=== PATIENT | female | born 1950 | race Two or more races ===

== ENCOUNTER 2017-08-16 21:56 | Inpatient (IN) | payer MEDICARE, OTHER ==
[2017-08-16] MEDS ORDERED: Acetaminophen 325 MG Tab PO PRN (22:37)
--- NOTE | 2017-08-16 22:38 | EDM.PDOC ---
ED HPI GENERAL MEDICAL PROBLEM - General Chief Complaint: Gastrointestinal Problem Stated Complaint: VOMITING/FLANK PAIN Time Seen by Provider: 08/16/17 23:00 Source of Information: Reports: Patient History Limitations: Reports: No Limitations - History of Present Illness INITIAL COMMENTS - FREE TEXT/NARRATIVE: The patient is a 66-year-old female with a chief complaint of flank pain and fever. She states that she's been ill for about 4 days. She's been having multiple episodes of vomiting per day. She's had fever and chills for the last couple of days. She also has bilateral flank pain. Pain is moderate, dull, worse with movement. She hasn't particularly had dysuria or hematuria. States like it feels like prior kidney infections. No cough or shortness of breath. She also has had some intermittent abdominal pain, she doesn't have any abdominal pain at the moment. She has a history of heart failure and polymyositis rheumatica and is chronically on steroids, she states she has been able to take her medications and keep them down. She is visiting from out of [facility] and is supposed to travel back to [place] in a few days. Bilateral Upper Flank Pain Score (Numeric/FACES): 8 - Related Data Allergies Allergy/AdvReac Type Severity Reaction Status Date / Time sulfamethoxazole Allergy Hives Verified 08/16/17 22:05 [From Bactrim] trimethoprim [From Bactrim] Allergy Hives Verified 08/16/17 22:05 Home Meds: Home Meds Carvedilol [Coreg] 12.5 mg PO BID 08/16/17 [History] Clopidogrel [Plavix] 75 mg PO DAILY 08/16/17 [History] Cyclobenzaprine [Flexeril] 1 tab PO TID 08/16/17 [History] Evolocumab [Repatha Sureclick] 140 mg WEEKLY 08/16/17 [History] Folic Acid 1 tab PO DAILY 08/16/17 [History] Furosemide [Lasix] 1 tab PO BID 08/16/17 [History] Levothyroxine Sodium [Synthroid] 125 mcg PO DAILY 08/16/17 [History] Lipase/Protease/Amylase [Lluvia Rodriguez 36,000 Units Capsule] 1 cap PO BID 08/16/17 [ History] Mometasone/Formoterol [Dulera 200-5 MCG] 2 puff INH BID 08/16/17 [History] Mycophenolate Mofetil [Cellcept] 1 tab PO BID 08/16/17 [History] Nitroglycerin [Nitrostat] 1 tab SL ASDIRECTED PRN 08/16/17 [History] Pantoprazole Sodium [Protonix] 1 cap PO DAILY 08/16/17 [History] Potassium Chloride [Klor-Con] 20 meq PO BID 08/16/17 [History] Spironolactone [Aldactone] 50 mg PO DAILY 08/16/17 [History] Temazepam 1 cap PO BEDTIME PRN 08/16/17 [History] Venlafaxine HCl [Venlafaxine ER] 1 cap PO DAILY 08/16/17 [History] oxyCODONE HCl [Oxycodone HCl] 5 ml PO Q6HR PRN 08/16/17 [History] predniSONE [Prednisone] 15 mg PO DAILY 08/16/17 [History] Past Medical History Cardiovascular History: Reports: Heart Failure, Hypertension, [place], Stents Respiratory History: Reports: COPD, Sleep Apnea Gastrointestinal History: Reports: Colon Polyp, Hiatal Hernia, Pancreatitis Genitourinary History: Reports: Pyelonephritis CORE FILER History: Reports: Musculoskeletal History: Reports: Fibromyalgia, Osteoarthritis Neurological History: Reports: TIA Endocrine/Metabolic History: Reports: Hypothyroidism Hematologic History: Reports: Anemia - Past Surgical History Cardiovascular Surgical History: Reports: Coronary Artery Stent GI Surgical History: Reports: Cholecystectomy, Colonoscopy, EGD, Polypectomy Female Surgical History: Reports: Hysterectomy Social & Family History - Tobacco Use Smoking Status *Q: Former Smoker Used Tobacco, but Quit: Yes Month/Year Tobacco Last Used: 2008 - Recreational Drug Use Recreational Drug Use: No ED ROS GENERAL - Review of Systems Review Of Systems: See Below Constitutional: Reports: Fever HEENT: Reports: No Symptoms Respiratory: Denies: Shortness of Breath, Cough Cardiovascular: Denies: Chest Pain Endocrine: Reports: No Symptoms GI/Abdominal: Reports: Abdominal Pain, Vomiting : Reports: Dysuria, Flank Pain Musculoskeletal: Reports: No Symptoms Skin: Reports: No Symptoms ED EXAM, RENAL/ - Physical Exam Exam: See Below Exam Limited By: No Limitations General Appearance: Alert, WD/WN, No Apparent Distress Eye Exam: Bilateral Eye: Normal Inspection Ears: Normal External Exam Nose: Normal Inspection Throat/Mouth: Normal Inspection, Normal Oropharynx, Normal Voice, No Airway Compromise Head: Atraumatic, Normocephalic Neck: Normal Inspection, Supple, Non-Tender, Full Range of Motion Respiratory/Chest: No Respiratory Distress, Lungs Clear, Normal Breath Sounds, No Accessory Muscle Use, Chest Non-Tender Cardiovascular: Normal Peripheral Pulses, Regular Rate, Rhythm, No Edema GI/Abdominal: Soft, Non-Tender, No Distention. No: Rebound Back Exam: Normal Inspection, CVA Tenderness (L), CVA Tenderness (R) Extremities: Normal Inspection Neurological: Alert, Oriented, Normal Cognition, No Motor/Sensory Deficits Psychiatric: Normal Affect, Normal Mood Skin Exam: Warm, Dry, Intact, Normal Color, No Rash Course - Vital Signs Last Recorded V/S: Last Vital Signs Temp 37.3 C 08/16/17 22:44 Pulse 92 08/16/17 22:05 Resp 20 08/16/17 22:05 BP 141/44 H 08/16/17 22:05 Pulse Ox 97 08/16/17 22:05 - Orders/Labs/Meds Orders: Active Orders 24 hr Category Date Time Status CULTURE BLOOD [BC] Stat Lab 08/16/17 23:00 Received CULTURE BLOOD [BC] Stat Lab 08/16/17 23:10 Received UA W/MICROSCOPIC [URIN] Stat Lab 08/16/17 22:45 Ordered Acetaminophen [Tylenol] Med 08/16/17 22:37 Active 650 mg PO Q6H PRN Morphine Med 08/16/17 23:37 Active 4 mg IVPUSH Q2H PRN Sodium Chloride 0.9% [Saline Flush] Med 08/16/17 22:37 Active 10 ml FLUSH ASDIRECTED PRN Blood Culture x2 Reflex Set [OM.PC] Stat Oth 08/16/17 22:37 Ordered Peripheral IV Insertion Adult [OM.PC] Routine Oth 08/16/17 22:37 Ordered Medication Orders Acetaminophen (Tylenol) 650 mg PO Q6H PRN PRN Reason: Fever Last Admin: 08/16/17 22:44 Dose: 650 mg Morphine Sulfate (Morphine) 4 mg IVPUSH Q2H PRN PRN Reason: Pain Last Admin: 08/16/17 23:53 Dose: 4 mg Sodium Chloride (Saline Flush) 10 ml FLUSH ASDIRECTED PRN PRN Reason: Keep Vein Open Last Admin: 06/17/18 23:00 Dose: 10 ml Labs: Laboratory Tests 08/16/17 08/16/17 08/16/17 Range/Units 22:45 23:00 23:00 WBC 17.62 H (3.98-10.04) K/mm3 RBC 3.97 L (3.98-5.22) M/mm3 Hgb 11.2 (11.2-15.7) gm/L Hct 35.1 (34.1-44.9) % MCV 88.4 (79.4-94.8) fl MCH 28.2 (25.6-32.2) pg MCHC 31.9 L (32.2-35.5) g/dl RDW Std Deviation 44.9 (36.4-46.3) fL Plt Count 242 (182-369) K/mm3 MPV 9.8 (9.4-12.3) fl Neut % (Auto) 78.4 H (34.0-71.1) % Lymph % (Auto) 11.1 L (19.3-51.7) % Mitchell % (Auto) 8.7 (4.7-12.5) % Eos % (Auto) 1.2 (0.7-5.8) Baso % (Auto) 0.2 (0.1-1.2) % Neut # (Auto) 13.80 H (1.56-6.13) K/mm3 Lymph # (Auto) 1.95 (1.18-3.74) K/mm3 Mitchell # (Auto) 1.54 H (0.24-0.36) K/mm3 Eos # (Auto) 0.22 (0.04-0.36) K/mm3 Baso # (Auto) 0.04 (0.01-0.08) K/mm3 Manual Slide Review Abnormal smear Sodium 133 L (136-145) mEq/L Potassium 4.3 (3.5-5.1) mEq/L Chloride 99 (98-107) mEq/L Carbon Dioxide 22 (21-32) mEq/L Anion Gap 16.3 H (5-15) BUN 24 H (7-18) mg/dL Creatinine 1.1 H (0.55-1.02) mg/dL Est Cr Clr Drug Dosing 40.86 mL/min Estimated GFR (MDRD) 50 (>60) mL/min BUN/Creatinine Ratio 21.8 H (14-18) Glucose 93 (80-115) mg/dL Lactic Acid (0.4-2.0) mmol/L Calcium 8.5 (8.5-10.1) mg/dL Magnesium 2.1 (1.8-2.4) mg/dl Total Bilirubin 0.5 (0.2-1.0) mg/dL AST 59 H (15-37) U/L ALT 113 H (14-59) U/L Alkaline Phosphatase 89 (46-116) U/L Total Protein 6.8 (6.4-8.2) g/dl Albumin 3.3 L (3.4-5.0) g/dl Globulin 3.5 gm/dL Albumin/Globulin Ratio 0.9 L (1-2) Lipase (73-393) U/L Urine Color Yellow (Yellow) Urine Appearance Slt cloudy H (Clear) Urine pH 6.0 (5.0-8.0) Ur Specific [place] 1.015 (1.005-1.030) Urine Protein 2+ H (Negative) Urine Glucose (UA) Negative (Negative) Urine Ketones Negative (Negative) Urine Occult Blood 2+ H (Negative) Urine Nitrite Positive H (Negative) Urine Bilirubin Negative (Negative) Urine Urobilinogen 0.2 (0.2-1.0) Ur Leukocyte Esterase 2+ H (Negative) Urine RBC 10-20 H (0-5) /hpf Urine WBC 40-50 H (0-5) /hpf Ur Epithelial Cells 10-20 H (0-5) /hpf Urine Bacteria Many H (FEW) /hpf Urine Mucus Not seen (FEW) /hpf 08/16/17 08/16/17 Range/Units 23:00 23:00 WBC (3.98-10.04) K/mm3 RBC (3.98-5.22) M/mm3 Hgb (11.2-15.7) gm/L Hct (34.1-44.9) % MCV (79.4-94.8) fl MCH (25.6-32.2) pg MCHC (32.2-35.5) g/dl RDW Std Deviation (36.4-46.3) fL Plt Count (182-369) K/mm3 MPV (9.4-12.3) fl Neut % (Auto) (34.0-71.1) % Lymph % (Auto) (19.3-51.7) % Mitchell % (Auto) (4.7-12.5) % Eos % (Auto) (0.7-5.8) Baso % (Auto) (0.1-1.2) % Neut # (Auto) (1.56-6.13) K/mm3 Lymph # (Auto) (1.18-3.74) K/mm3 Mitchell # (Auto) (0.24-0.36) K/mm3 Eos # (Auto) (0.04-0.36) K/mm3 Baso # (Auto) (0.01-0.08) K/mm3 Manual Slide Review Sodium (136-145) mEq/L Potassium (3.5-5.1) mEq/L Chloride (98-107) mEq/L Carbon Dioxide (21-32) mEq/L Anion Gap (5-15) BUN (7-18) mg/dL Creatinine (0.55-1.02) mg/dL Est Cr Clr Drug Dosing mL/min Estimated GFR (MDRD) (>60) mL/min BUN/Creatinine Ratio (14-18) Glucose (80-115) mg/dL Lactic Acid 2.4 H (0.4-2.0) mmol/L Calcium (8.5-10.1) mg/dL Magnesium (1.8-2.4) mg/dl Total Bilirubin (0.2-1.0) mg/dL AST (15-37) U/L ALT (14-59) U/L Alkaline Phosphatase (46-116) U/L Total Protein (6.4-8.2) g/dl Albumin (3.4-5.0) g/dl Globulin gm/dL Albumin/Globulin Ratio (1-2) Lipase 126 (73-393) U/L Urine Color (Yellow) Urine Appearance (Clear) Urine pH (5.0-8.0) Ur Specific [place] (1.005-1.030) Urine Protein (Negative) Urine Glucose (UA) (Negative) Urine Ketones (Negative) Urine Occult Blood (Negative) Urine Nitrite (Negative) Urine Bilirubin (Negative) Urine Urobilinogen (0.2-1.0) Ur Leukocyte Esterase (Negative) Urine RBC (0-5) /hpf Urine WBC (0-5) /hpf Ur Epithelial Cells (0-5) /hpf Urine Bacteria (FEW) /hpf Urine Mucus (FEW) /hpf Meds: Medications Generic Name Dose Route Start Last Admin Trade Name Freq PRN Reason Stop Dose Admin Acetaminophen 650 mg 08/16/17 22:37 08/16/17 22:44 Tylenol PO 650 mg Q6H PRN Administration Fever Morphine Sulfate 4 mg 08/16/17 23:37 08/16/17 23:53 Morphine IVPUSH 4 mg Q2H PRN Administration Pain Sodium Chloride 10 ml 08/16/17 22:37 08/16/17 23:00 Saline Flush FLUSH 10 ml ASDIRECTED PRN Administration Keep Vein Open Discontinued Medications Generic Name Dose Route Start Last Admin Trade Name Freq PRN Reason Stop Dose Admin Ceftriaxone Sodium 2 gm/ 100 mls @ 200 mls/hr 08/16/17 23:29 08/16/17 23:38 Sodium Chloride IV 08/16/17 23:58 Not Given ONETIME ONE Ceftriaxone Sodium 2 gm/ 100 mls @ 100 mls/hr 08/16/17 23:33 08/16/17 23:47 Sodium Chloride IV 08/17/17 00:32 100 mls/hr ONETIME ONE Administration Sodium Chloride 500 mls @ 1,000 mls/hr 08/16/17 23:34 08/16/17 23:46 Normal Saline IV 08/17/17 00:03 1,000 mls/hr ONETIME ONE Administration Ondansetron HCl 4 mg 08/16/17 23:34 08/16/17 23:47 Zofran IVPUSH 08/16/17 23:35 4 mg ONETIME ONE Administration - Re-Assessments/Exams Free Text/Narrative Re-Assessment/Exam: 08/17/17 01:15 Urine shows infection. Ceftriaxone ordered. White blood cell count is 17,000, 78 % neutrophils, lactate is 2.4. Her creatinines 1.1. She is mildly hyponatremic, her electrolytes are otherwise unremarkable. Lipase is normal. 500 mL bolus ordered as she clinically looks dry and has had a lot of vomiting today. Fluid resuscitation will need to be careful since she does have a history of CHF. Discussed with Dr. Muro who agrees to admit her for further care. Departure - Departure Time of Disposition: 01:16 Disposition: Admitted As Inpatient 68 Clinical Impression: Pyelonephritis Sepsis Qualifiers: Sepsis type: sepsis due to unspecified organism Qualified Code(s): A41.9 - Sepsis, unspecified organism - Discharge Information - My Orders Last 24 Hours: My Active Orders 08/16/17 22:37 Acetaminophen [Tylenol] 650 mg PO Q6H PRN Sodium Chloride 0.9% [Saline Flush] 10 ml FLUSH ASDIRECTED PRN Blood Culture x2 Reflex Set [OM.PC] Stat Peripheral IV Insertion Adult [OM.PC] Routine 08/16/17 22:45 UA W/MICROSCOPIC [URIN] Stat 08/16/17 23:00 CULTURE BLOOD [BC] Stat 08/16/17 23:10 CULTURE BLOOD [BC] Stat 08/16/17 23:37 Morphine 4 mg IVPUSH Q2H PRN - Assessment/Plan Last 24 Hours: My Active Orders 08/16/17 22:37 Acetaminophen [Tylenol] 650 mg PO Q6H PRN Sodium Chloride 0.9% [Saline Flush] 10 ml FLUSH ASDIRECTED PRN Blood Culture x2 Reflex Set [OM.PC] Stat Peripheral IV Insertion Adult [OM.PC] Routine 08/16/17 22:45 UA W/MICROSCOPIC [URIN] Stat 08/16/17 23:00 CULTURE BLOOD [BC] Stat 08/16/17 23:10 CULTURE BLOOD [BC] Stat 08/16/17 23:37 Morphine 4 mg IVPUSH Q2H PRN
[2017-08-16] MEDS: Sodium Chloride 0.9% 10 ML Syringe FLUSH PRN (23:00)
[2017-08-16] MEDS ORDERED: cefTRIAXone 2 GM in Sodium Chloride 0.9% 100 ML IV ONE ×2 (23:29→23:33)
[2017-08-16] MEDS ORDERED: Sodium Chloride 0.9% 500 ML IV ONE (23:34)
[2017-08-16] MEDS ORDERED: Ondansetron 4 MG/2 ML SDV IVPUSH ONE (23:34)
[2017-08-16] MEDS ORDERED: Morphine 4 MG/ML Syringe IVPUSH PRN (23:37)
[2017-08-17] MEDS ORDERED: Sodium Chloride 0.9% 1,000 ML IV SCH ×2 (02:00→18:00)
[2017-08-17] MEDS ORDERED: Acetaminophen/HYDROcodone 325-5 MG Tab PO PRN (02:06)
[2017-08-17] MEDS ORDERED: Morphine 2 MG/ML Syringe IVPUSH PRN (02:08)
[2017-08-17] MEDS ORDERED: Ibuprofen 600 MG Tab PO PRN (02:30)
[2017-08-17] MEDS: Acetaminophen 325 MG Tab PO PRN ×2 (02:32→13:49)
[2017-08-17] MEDS: Ondansetron 4 MG/2 ML SDV IVPUSH PRN ×2 (02:32→09:45)
[2017-08-17] MEDS ORDERED: Cyclobenzaprine 10 MG Tab PO PRN (08:58)
[2017-08-17] MEDS ORDERED: Nitroglycerin 0.4 MG Tab.SL SL PRN (08:58)
[2017-08-17] MEDS ORDERED: oxyCODONE 5 MG Tab PO PRN (08:58)
[2017-08-17] MEDS ORDERED: Carvedilol 12.5 MG Tab PO SCH ×2 (09:00→21:00)
[2017-08-17] MEDS ORDERED: Promethazine 25 MG Tab PO PRN (09:05)
[2017-08-17] MEDS ORDERED: Bisacodyl 5 MG Tab PO PRN (09:05)
[2017-08-17] MEDS ORDERED: Polyethylene Glycol 3350 Powder 17 GM Packet PO PRN (09:05)
[2017-08-17] MEDS ORDERED: Albuterol/Ipratropium 3.0-0.5 MG/3 ML Neb Soln NEB PRN (09:05)
[2017-08-17] MEDS ORDERED: Docusate Sodium 100 MG Cap PO PRN (09:05)
[2017-08-17] MEDS ORDERED: Magnesium Hydroxide 400 MG/5 ML Susp 30 ML Cup PO PRN (09:05)
[2017-08-17] MEDS: Levothyroxine 125 MCG Tab PO SCH (09:37)
[2017-08-17] MEDS: Furosemide 40 MG Tab PO SCH (09:37)
[2017-08-17] MEDS: Venlafaxine 75 MG Cap.ER PO SCH (09:37)
[2017-08-17] MEDS: Pantoprazole 40 MG Tab.CR PO SCH (09:38)
[2017-08-17] MEDS: Clopidogrel 75 MG Tab PO SCH (09:38)
[2017-08-17] MEDS: predniSONE 10 MG Tab PO SCH (09:38)
[2017-08-17] MEDS: Spironolactone 25 MG Tab PO SCH (09:38)
[2017-08-17] MEDS: Folic Acid 1 MG Tab PO SCH (09:38)
[2017-08-17] MEDS: Potassium Chloride 20 MEQ Tab.ER PO SCH ×2 (09:38→20:28)
[2017-08-17] MEDS: LIPASE PO SCH ×2 (09:40→20:31)
[2017-08-17] MEDS: AMYLASE PO SCH ×2 (09:40→20:31)
[2017-08-17] MEDS: PROTEASE PO SCH ×2 (09:40→20:31)
[2017-08-17] MEDS: Formoterol/Mometasone 200-5 MCG 8.8 GM Inhaler IH SCH ×2 (09:57→20:26)
[2017-08-17] MEDS: Mycophenolate Mofetil 250 MG Cap PO SCH ×2 (10:01→20:28)
[2017-08-17] MEDS: Hydrocortisone Sodium Succinate 100 MG/2 ML SDV IVPUSH SCH ×2 (11:50→18:18)
[2017-08-17] MEDS ORDERED: Promethazine 25 MG in Sodium Chloride 0.9% 50 ML IV ONE (12:00)
--- NOTE | 2017-08-17 14:41 | PCM.HP ---
H&P History of Present Illness - General Date of Service: 08/17/17 Admit Problem/Dx: Admission Diagnosis/Problem Admission Diagnosis/Problem Pyelonephritis Source of Information: Patient, Family, Provider History Limitations: Reports: No Limitations - History of Present Illness Initial Comments - Free Text/Narative: This is a 66 y/o female with PMHx significant for previous pyelonephritis, heart failure, HTN, RI, cardiac stents, COPD, ABY, fibromyalgia, OA, hypothyroidism, TIA, hiatal hernia, pancreatitis, colon polyp with polypectomy, and cholecystectomy who comes in for flank pain and fever. Patient reports fever , abdominal pain, vomiting, dysuria and flank pain. She denies HEENT issues, shortness of breath, cough, chest pain, musculoskeletal, or skin issues. Her work-up in the ED showed CBC remarkable for WBC 17.62, 78.4% neutrophils. CMP remarkable for Na 133, anion gap 16.3, BUN 24, Cr 1.1, eGFR 50, AST 59, ALT 113, albumin 3.3. UA showed slightly cloudy appearance, 2+ protein, 2+ occult blood, positive nitrite, 2+ LE, 10-20 RBC, 40-50 WBC, 10-20 epithelial cells, and many bacteria. Lipase was 126. Lactic acid was 2.4. ED also ordered BC x 2 and preliminary report is gram negative rods. Ceftriaxone 2gm IV initiated in ED. Patient reports that she began feeling ill approximately 4 days ago. She has been having fever, chills, and b/l flank pain. She has also been feeling very nauseous and has been vomiting several times per day. She does not endorse significant dysuria, hematuria, or frequency. She has had previous kidney infections and states that she is feeling like she did during the prior kidney infections. She states she was hospitalized in September 2016 for 8 days for a kidney infection. Chronically, patient endorses history of heart failure and she is chronically on steroids. She is visiting from out of state and is supposed to travel back to [place] in a few days. She is subsequently admitted to Med/Surg. She is a former smoker and quit in 2008. She is a full code. PCP is Dr. Jamie Rosario in [place], [place]. Bilateral Upper Flank Pain Score (Numeric/FACES): 0 - Related Data Allergies/Adverse Reactions: Allergies Allergy/AdvReac Type Severity Reaction Status Date / Time sulfamethoxazole Allergy Hives Verified 08/17/17 01:38 [From Bactrim] trimethoprim [From Bactrim] Allergy Hives Verified 08/17/17 01:38 Home Medications: Home Meds Carvedilol [Coreg] 12.5 mg PO BID 08/16/17 [History] Clopidogrel [Plavix] 75 mg PO DAILY 08/16/17 [History] Cyclobenzaprine [Flexeril] 10 mg PO TID PRN 08/16/17 [History] Evolocumab [Repatha Sureclick] 140 mg Q15D 08/16/17 [History] Folic Acid 1 tab PO DAILY 08/16/17 [History] Furosemide [Lasix] 80 mg PO BID 08/16/17 [History] Levothyroxine Sodium [Synthroid] 125 mcg PO DAILY 08/16/17 [History] Lipase/Protease/Amylase [Lluvia Rodriguez 36,000 Units Capsule] 1 cap PO BID 08/16/17 [ History] Mometasone/Formoterol [Dulera 200-5 MCG] 2 puff INH BID 08/16/17 [History] Mycophenolate Mofetil [Cellcept] 1,000 mg PO BID 08/16/17 [History] Nitroglycerin [Nitrostat] 1 tab SL ASDIRECTED PRN 08/16/17 [History] Pantoprazole Sodium [Protonix] 40 mg PO DAILY 08/16/17 [History] Potassium Chloride [Klor-Con] 20 meq PO BID 08/16/17 [History] Spironolactone [Aldactone] 50 mg PO DAILY 08/16/17 [History] Temazepam 15 mg PO BEDTIME PRN 08/16/17 [History] Venlafaxine HCl [Venlafaxine ER] 75 mg PO DAILY 08/16/17 [History] oxyCODONE HCl [Oxycodone HCl] 5 ml PO Q6HR PRN 08/16/17 [History] predniSONE [Prednisone] 15 mg PO DAILY 08/16/17 [History] Past Medical History HEENT History: Reports: Impaired Vision, Other (See Below) Other HEENT History: states she wears glasses for reading only. Cardiovascular History: Reports: Heart Failure, Hypertension, RI, Stents Respiratory History: Reports: COPD, Sleep Apnea Other Respiratory History: says she wears 3 liters oxygen into her cpap machine at night Gastrointestinal History: Reports: Colon Polyp, Hiatal Hernia, Pancreatitis Genitourinary History: Reports: Pyelonephritis [employer] History: Reports: Musculoskeletal History: Reports: Fibromyalgia, Osteoarthritis Neurological History: Reports: TIA Endocrine/Metabolic History: Reports: Hypothyroidism Hematologic History: Reports: Anemia - Past Surgical History Cardiovascular Surgical History: Reports: Coronary Artery Stent GI Surgical History: Reports: Cholecystectomy, Colonoscopy, EGD, Polypectomy Female Surgical History: Reports: Hysterectomy Social & Family History - Family History Family Medical History: Noncontributory - Tobacco Use Smoking Status *Q: Former Smoker Used Tobacco, but Quit: Yes Month/Year Tobacco Last Used: 2008 Second Hand Smoke Exposure: No - Recreational Drug Use Recreational Drug Use: No H&P Review of Systems - Review of Systems: Review Of Systems: See Below General: Reports: Fever, Chills, Malaise, Weakness HEENT: Reports: No Symptoms, Sinus Congestion, Sore Throat Pulmonary: Reports: No Symptoms. Denies: Shortness of Breath, Wheezing, Cough Cardiovascular: Reports: Dyspnea on Exertion (chronic ). Denies: Chest Pain, Palpitations, Edema Gastrointestinal: Reports: Abdominal Pain (mild), Nausea, Vomiting. Denies: Constipation, Diarrhea Genitourinary: Reports: Dysuria (mild ), Flank Pain (b/l ). Denies: Frequency, Burning Musculoskeletal: Reports: No Symptoms Skin: Reports: No Symptoms Psychiatric: Reports: No Symptoms. Denies: Confusion, Depression Neurological: Reports: Headache. Denies: Confusion, Dizziness Hematologic/Lymphatic: Reports: No Symptoms Immunologic: Reports: No Symptoms Exam - Exam Exam: See Below - Vital Signs Vital Signs: Last Vital Signs Temp 97.3 F 08/17/17 11:54 Pulse 69 08/17/17 11:54 Resp 18 08/17/17 11:54 BP 110/74 08/17/17 11:54 Pulse Ox 99 08/17/17 11:54 Weight: 189 lb - Exam Quality Assessment: No: Supplemental Oxygen General: Alert, Oriented, Cooperative, Mild Distress, Other (Obese ) HEENT: Conjunctiva Clear, EOMI, Hearing Intact, Pupils Equal, Pupils Reactive, Other (Mucous membranes mildly dry ) Neck: Supple. No: Lymphadenopathy Lungs: Clear to Auscultation, Normal Respiratory Effort Cardiovascular: Regular Rate, Regular Rhythm, Normal S1, Normal S2 GI/Abdominal Exam: Normal Bowel Sounds, Soft, No Distention, Other (Mild diffuse tenderness ) (Female) Exam: Deferred Rectal (Female) Exam: Deferred Back Exam: Normal Inspection, Full Range of Motion Extremities: Normal Inspection, Normal Range of Motion, Non-Tender, No Pedal Edema, Normal Capillary Refill Peripheral Pulses: 2+: Radial (L), Radial (R), Posterior Tibial (L), Posterior Tibial (R), Dorsalis Pedis (L), Dorsalis Pedis (R) Skin: Warm, Dry, Intact Neurological: Cranial Nerves Intact (grossly ), Strength Equal Bilateral Neuro Extensive - Mental Status: Alert, Oriented x3, Normal Mood/Affect, Normal Cognition, Memory Intact Neuro Extensive - Motor, Sensory, Reflexes: CN II-XII Intact (grossly ) Psychiatric: Alert, Normal Affect, Normal Mood - Patient Data Lab Results Last 24 hrs: Laboratory Results - last 24 hr 08/16/17 08/16/17 08/16/17 Range/Units 22:45 23:00 23:00 WBC 17.62 H (3.98-10.04) K/mm3 RBC 3.97 L (3.98-5.22) M/mm3 Hgb 11.2 (11.2-15.7) gm/L Hct 35.1 (34.1-44.9) % MCV 88.4 (79.4-94.8) fl MCH 28.2 (25.6-32.2) pg MCHC 31.9 L (32.2-35.5) g/dl RDW Std Deviation 44.9 (36.4-46.3) fL Plt Count 242 (182-369) K/mm3 MPV 9.8 (9.4-12.3) fl Neut % (Auto) 78.4 H (34.0-71.1) % Lymph % (Auto) 11.1 L (19.3-51.7) % [place] % (Auto) 8.7 (4.7-12.5) % Eos % (Auto) 1.2 (0.7-5.8) Baso % (Auto) 0.2 (0.1-1.2) % Neut # (Auto) 13.80 H (1.56-6.13) K/mm3 Lymph # (Auto) 1.95 (1.18-3.74) K/mm3 [place] # (Auto) 1.54 H (0.24-0.36) K/mm3 Eos # (Auto) 0.22 (0.04-0.36) K/mm3 Baso # (Auto) 0.04 (0.01-0.08) K/mm3 Manual Slide Review Abnormal smear Sodium 133 L (136-145) mEq/L Potassium 4.3 (3.5-5.1) mEq/L Chloride 99 (98-107) mEq/L Carbon Dioxide 22 (21-32) mEq/L Anion Gap 16.3 H (5-15) BUN 24 H (7-18) mg/dL Creatinine 1.1 H (0.55-1.02) mg/dL Est Cr Clr Drug Dosing 40.86 mL/min Estimated GFR (MDRD) 50 (>60) mL/min BUN/Creatinine Ratio 21.8 H (14-18) Glucose 93 (80-115) mg/dL Lactic Acid (0.4-2.0) mmol/L Calcium 8.5 (8.5-10.1) mg/dL Magnesium 2.1 (1.8-2.4) mg/dl Total Bilirubin 0.5 (0.2-1.0) mg/dL AST 59 H (15-37) U/L ALT 113 H (14-59) U/L Alkaline Phosphatase 89 (46-116) U/L C-Reactive Protein (<1.0) mg/dL NT-Pro-B Natriuret Pep (0-125) pg/mL Total Protein 6.8 (6.4-8.2) g/dl Albumin 3.3 L (3.4-5.0) g/dl Globulin 3.5 gm/dL Albumin/Globulin Ratio 0.9 L (1-2) Lipase (73-393) U/L Urine Color Yellow (Yellow) Urine Appearance Slt cloudy H (Clear) Urine pH 6.0 (5.0-8.0) Ur Specific [place] 1.015 (1.005-1.030) Urine Protein 2+ H (Negative) Urine Glucose (UA) Negative (Negative) Urine Ketones Negative (Negative) Urine Occult Blood 2+ H (Negative) Urine Nitrite Positive H (Negative) Urine Bilirubin Negative (Negative) Urine Urobilinogen 0.2 (0.2-1.0) Ur Leukocyte Esterase 2+ H (Negative) Urine RBC 10-20 H (0-5) /hpf Urine WBC 40-50 H (0-5) /hpf Ur Epithelial Cells 10-20 H (0-5) /hpf Urine Bacteria Many H (FEW) /hpf Urine Mucus Not seen (FEW) /hpf 08/16/17 08/16/17 08/17/17 Range/Units 23:00 23:00 06:30 WBC 15.71 H (3.98-10.04) K/mm3 RBC 3.80 L (3.98-5.22) M/mm3 Hgb 10.8 L (11.2-15.7) gm/L Hct 33.5 L (34.1-44.9) % MCV 88.2 (79.4-94.8) fl MCH 28.4 (25.6-32.2) pg MCHC 32.2 (32.2-35.5) g/dl RDW Std Deviation 43.8 (36.4-46.3) fL Plt Count 218 (182-369) K/mm3 MPV 10.1 (9.4-12.3) fl Neut % (Auto) 74.2 H (34.0-71.1) % Lymph % (Auto) 13.4 L (19.3-51.7) % [place] % (Auto) 10.7 (4.7-12.5) % Eos % (Auto) 1.0 (0.7-5.8) Baso % (Auto) 0.3 (0.1-1.2) % Neut # (Auto) 11.66 H (1.56-6.13) K/mm3 Lymph # (Auto) 2.11 (1.18-3.74) K/mm3 [place] # (Auto) 1.68 H (0.24-0.36) K/mm3 Eos # (Auto) 0.15 (0.04-0.36) K/mm3 Baso # (Auto) 0.05 (0.01-0.08) K/mm3 Manual Slide Review Abnormal smear Sodium (136-145) mEq/L Potassium (3.5-5.1) mEq/L Chloride (98-107) mEq/L Carbon Dioxide (21-32) mEq/L Anion Gap (5-15) BUN (7-18) mg/dL Creatinine (0.55-1.02) mg/dL Est Cr Clr Drug Dosing mL/min Estimated GFR (MDRD) (>60) mL/min BUN/Creatinine Ratio (14-18) Glucose (80-115) mg/dL Lactic Acid 2.4 H (0.4-2.0) mmol/L Calcium (8.5-10.1) mg/dL Magnesium (1.8-2.4) mg/dl Total Bilirubin (0.2-1.0) mg/dL AST (15-37) U/L ALT (14-59) U/L Alkaline Phosphatase (46-116) U/L C-Reactive Protein (<1.0) mg/dL NT-Pro-B Natriuret Pep (0-125) pg/mL Total Protein (6.4-8.2) g/dl Albumin (3.4-5.0) g/dl Globulin gm/dL Albumin/Globulin Ratio (1-2) Lipase 126 (73-393) U/L Urine Color (Yellow) Urine Appearance (Clear) Urine pH (5.0-8.0) Ur Specific [place] (1.005-1.030) Urine Protein (Negative) Urine Glucose (UA) (Negative) Urine Ketones (Negative) Urine Occult Blood (Negative) Urine Nitrite (Negative) Urine Bilirubin (Negative) Urine Urobilinogen (0.2-1.0) Ur Leukocyte Esterase (Negative) Urine RBC (0-5) /hpf Urine WBC (0-5) /hpf Ur Epithelial Cells (0-5) /hpf Urine Bacteria (FEW) /hpf Urine Mucus (FEW) /hpf 08/17/17 08/17/17 08/17/17 Range/Units 06:30 06:30 06:30 WBC (3.98-10.04) K/mm3 RBC (3.98-5.22) M/mm3 Hgb (11.2-15.7) gm/L Hct (34.1-44.9) % MCV (79.4-94.8) fl MCH (25.6-32.2) pg MCHC (32.2-35.5) g/dl RDW Std Deviation (36.4-46.3) fL Plt Count (182-369) K/mm3 MPV (9.4-12.3) fl Neut % (Auto) (34.0-71.1) % Lymph % (Auto) (19.3-51.7) % [place] % (Auto) (4.7-12.5) % Eos % (Auto) (0.7-5.8) Baso % (Auto) (0.1-1.2) % Neut # (Auto) (1.56-6.13) K/mm3 Lymph # (Auto) (1.18-3.74) K/mm3 [place] # (Auto) (0.24-0.36) K/mm3 Eos # (Auto) (0.04-0.36) K/mm3 Baso # (Auto) (0.01-0.08) K/mm3 Manual Slide Review Sodium 132 L (136-145) mEq/L Potassium 4.0 (3.5-5.1) mEq/L Chloride 102 (98-107) mEq/L Carbon Dioxide 20 L (21-32) mEq/L Anion Gap 14.0 (5-15) BUN 23 H (7-18) mg/dL Creatinine 1.2 H (0.55-1.02) mg/dL Est Cr Clr Drug Dosing 37.46 mL/min Estimated GFR (MDRD) 45 (>60) mL/min BUN/Creatinine Ratio 19.2 H (14-18) Glucose 102 (80-115) mg/dL Lactic Acid 0.6 (0.4-2.0) mmol/L Calcium 7.9 L (8.5-10.1) mg/dL Magnesium 2.0 (1.8-2.4) mg/dl Total Bilirubin (0.2-1.0) mg/dL AST (15-37) U/L ALT (14-59) U/L Alkaline Phosphatase (46-116) U/L C-Reactive Protein 19.1 H* (<1.0) mg/dL NT-Pro-B Natriuret Pep 2441 H (0-125) pg/mL Total Protein (6.4-8.2) g/dl Albumin (3.4-5.0) g/dl Globulin gm/dL Albumin/Globulin Ratio (1-2) Lipase (73-393) U/L Urine Color (Yellow) Urine Appearance (Clear) Urine pH (5.0-8.0) Ur Specific [place] (1.005-1.030) Urine Protein (Negative) Urine Glucose (UA) (Negative) Urine Ketones (Negative) Urine Occult Blood (Negative) Urine Nitrite (Negative) Urine Bilirubin (Negative) Urine Urobilinogen (0.2-1.0) Ur Leukocyte Esterase (Negative) Urine RBC (0-5) /hpf Urine WBC (0-5) /hpf Ur Epithelial Cells (0-5) /hpf Urine Bacteria (FEW) /hpf Urine Mucus (FEW) /hpf Result Diagrams: 08/17/17 06:30 08/17/17 06:30 Cristopher Results Last 24 hrs: Microbiology 08/16/17 23:00 Anaerobic Blood Culture - Preliminary Blood - Venous Gram Negative Rods 08/16/17 23:10 Aerobic Blood Culture - Preliminary Blood - Venous - Lab Draw Gram Negative Rods Anaerobic Blood Culture - Preliminary Gram Negative Rods Problem List Initiated/Reviewed/Updated: Yes Orders Last 24hrs: Active Orders 24 hr Category Date Time Status Patient Status [ADT] Routine ADT 08/17/17 00:40 Active Activity as Tolerated [RC] .Routine Care 08/17/17 02:01 Active Ambulate [RC] ASDIRECTED Care 08/17/17 09:05 Active Bedrest Bathroom Privileges [RC] ASDIRECTED Care 08/17/17 09:05 Active Height and Weight [RC] 04 Care 08/17/17 09:05 Active Intake and Output [RC] QSHIFT Care 08/17/17 09:06 Active May Shower [RC] ASDIRECTED Care 08/17/17 09:05 Active Oxygen Therapy [RC] PRN Care 08/17/17 09:05 Active Pulse Oximetry [RC] PRN Care 08/17/17 09:06 Active RT Aerosol Therapy [RC] ASDIRECTED Care 08/17/17 09:07 Active Up to Chair [RC] ASDIRECTED Care 08/17/17 09:05 Active VTE/DVT Education [RC] PER UNIT ROUTINE Care 08/17/17 09:05 Active Vital Signs [RC] Q4H Care 08/17/17 09:05 Active Consult to Case Management [CONS] Routine Cons 08/17/17 09:05 Active Consult to Booth Cleaner [CONS] Routine Cons 08/17/17 09:05 Active Consult to Spiritual Care [CONS] Routine Cons 08/17/17 09:05 Active OT Evaluation and Treatment [CONS] Routine Cons 08/17/17 09:05 Active PT Evaluation and Treatment [CONS] Routine Cons 08/17/17 09:05 Active 2 Gram Sodium Diet [DIET] Diet 08/17/17 Breakfast Active BASIC METABOLIC PANEL,BMP [CHEM] AM Lab 08/18/17 05:11 Ordered BASIC METABOLIC PANEL,BMP [CHEM] AM Lab 08/19/17 05:11 Ordered BASIC METABOLIC PANEL,BMP [CHEM] AM Lab 08/20/17 05:11 Ordered BASIC METABOLIC PANEL,BMP [CHEM] AM Lab 08/21/17 05:11 Ordered BASIC METABOLIC PANEL,BMP [CHEM] AM Lab 08/22/17 05:11 Ordered C-REACTIVE PROTEIN [CHEM] AM Lab 08/18/17 05:11 Ordered C-REACTIVE PROTEIN [CHEM] AM Lab 08/19/17 05:11 Ordered C-REACTIVE PROTEIN [CHEM] AM Lab 08/20/17 05:11 Ordered C-REACTIVE PROTEIN [CHEM] AM Lab 08/21/17 05:11 Ordered C-REACTIVE PROTEIN [CHEM] AM Lab 08/22/17 05:11 Ordered CBC WITH AUTO DIFF [HEME] AM Lab 08/18/17 05:11 Ordered CBC WITH AUTO DIFF [HEME] AM Lab 08/19/17 05:11 Ordered CBC WITH AUTO DIFF [HEME] AM Lab 08/20/17 05:11 Ordered CBC WITH AUTO DIFF [HEME] AM Lab 08/21/17 05:11 Ordered CBC WITH AUTO DIFF [HEME] AM Lab 08/22/17 05:11 Ordered CULTURE BLOOD [BC] Stat Lab 08/16/17 23:00 Results CULTURE BLOOD [BC] Stat Lab 08/16/17 23:10 Results CULTURE URINE [RM] Routine Lab 08/17/17 08:54 Ordered UA W/MICROSCOPIC [URIN] Stat Lab 08/16/17 22:45 Ordered Acetaminophen [Tylenol] Med 08/17/17 02:07 Active 650 mg PO Q4H PRN Acetaminophen/HYDROcodone [[place] 325-5 MG] Med 08/17/17 02:06 Active 1 tab PO Q6H PRN Albuterol/Ipratropium [DuoNeb 3.0-0.5 MG/3 ML] Med 08/17/17 09:05 Active 3 ml NEB Q4H PRN Bisacodyl [Dulcolax] Med 08/17/17 09:05 Active 5 mg PO DAILY PRN Carvedilol [Coreg] Med 08/17/17 09:00 Active 12.5 mg PO BID Clopidogrel [Plavix] Med 08/17/17 09:00 Active 75 mg PO DAILY Cyclobenzaprine [Flexeril] Med 08/17/17 08:58 Active 10 mg PO TID PRN Docusate Sodium [Colace] Med 08/17/17 09:05 Active 100 mg PO BID PRN Docusate Sodium/Sennosides [Senna Plus] Med 08/17/17 09:05 Active 1 tab PO BID PRN Folic Acid Med 08/17/17 09:00 Active 1 mg PO DAILY Furosemide [Lasix] Med 08/17/17 09:00 Active 80 mg PO BID Hydrocortisone Sod Succinate [Solu-CORTEF] Med 08/17/17 11:15 Active 100 mg IVPUSH Q8H Ibuprofen [Motrin] Med 08/17/17 02:30 Active 600 mg PO Q6H PRN Levothyroxine Med 08/17/17 09:00 Active 125 mcg PO DAILY Magnesium Hydroxide [Milk of Magnesia] Med 08/17/17 09:05 Active 30 ml PO Q12H PRN Mometasone/Formoterol [Dulera 200-5 MCG] Med 08/17/17 09:00 Active 2 puff IH BID Morphine Med 08/17/17 02:08 Active 2 mg IVPUSH Q4H PRN Mycophenolate Mofetil [Cellcept] Med 08/17/17 09:00 Active 1,000 mg PO BID Nitroglycerin [Nitrostat] Med 08/17/17 08:58 Active 0.4 mg SL ASDIRECTED PRN Ondansetron [Zofran] Med 08/17/17 02:06 Active 4 mg IVPUSH Q8H PRN Pantoprazole [ProTONIX] Med 08/17/17 09:00 Active 40 mg PO DAILY Patient's Own Medication [Ptom] Med 08/17/17 09:00 Active 0 each PO BID Polyethylene Glycol 3350 [MiraLAX] Med 08/17/17 09:05 Active 17 gm PO DAILY PRN Potassium Chloride [Klor-Con M20] Med 08/17/17 09:00 Active 20 meq PO BID Promethazine [Phenergan] Med 08/17/17 09:05 Active 25 mg PO Q6H PRN Sodium Chloride 0.9% [Normal Saline] 1,000 ml Med 08/17/17 02:00 Active IV ASDIRECTED Sodium Chloride 0.9% [Saline Flush] Med 08/16/17 22:37 Active 10 ml FLUSH ASDIRECTED PRN Spironolactone [Aldactone] Med 08/17/17 09:00 Active 50 mg PO DAILY Temazepam [Restoril] Med 08/17/17 08:58 Active 15 mg PO BEDTIME PRN Venlafaxine [Effexor XR] Med 08/17/17 09:00 Active 75 mg PO DAILY cefTRIAXone [Rocephin] 2 gm Med 08/17/17 18:00 Active Sodium Chloride 0.9% [Normal Saline] 100 ml IV Q24H oxyCODONE Med 08/17/17 08:58 Active 5 mg PO Q6H PRN predniSONE Med 08/17/17 09:00 Active 15 mg PO DAILY Blood Culture x2 Reflex Set [OM.PC] Stat Oth 08/16/17 22:37 Ordered CPAP [RESPCARE] Routine Oth 08/17/17 10:34 Active Peripheral IV Insertion Adult [OM.PC] Routine Oth 08/16/17 22:37 Ordered ANJALI Hose [Antiembolic Hose] [OM.PC] Routine Oth 08/17/17 02:01 Ordered Code Status [Resuscitation Status] Routine Resus Stat 08/17/17 01:37 Ordered Medication Orders Acetaminophen (Tylenol) 650 mg PO Q4H PRN PRN Reason: Pain/Fever Last Admin: 08/17/17 13:49 Dose: 650 mg Admin: 08/17/17 02:32 Dose: 650 mg Hydrocodone Bitart/Acetaminophen ([place] 325-5 Mg) 1 tab PO Q6H PRN PRN Reason: Pain Albuterol/Ipratropium (Duoneb 3.0-0.5 Mg/3 Ml) 3 ml NEB Q4H PRN PRN Reason: Shortness Of Breath/wheezing Bisacodyl (Dulcolax) 5 mg PO DAILY PRN PRN Reason: Constipation Carvedilol (Coreg) 12.5 mg PO BID ENRIQUE Last Admin: 08/17/17 09:38 Dose: 12.5 mg Clopidogrel Bisulfate (Plavix) 75 mg PO DAILY [facility] Last Admin: 08/17/17 09:38 Dose: 75 mg Cyclobenzaprine HCl (Flexeril) 10 mg PO TID PRN PRN Reason: Muscle Spasm Docusate Sodium (Colace) 100 mg PO BID PRN PRN Reason: Constipation Folic Acid (Folic Acid) 1 mg PO DAILY [facility] Last Admin: 08/17/17 09:38 Dose: 1 mg Furosemide (Lasix) 80 mg PO BID [facility] Last Admin: 08/17/17 09:37 Dose: 80 mg Hydrocortisone Sodium Succinate (Solu-Cortef) 100 mg IVPUSH Q8H [facility] Last Admin: 08/17/17 11:50 Dose: 100 mg Sodium Chloride (Normal Saline) 1,000 mls @ 50 mls/hr IV ASDIRECTED [facility] Last Admin: 08/17/17 14:15 Dose: 50 mls/hr Ceftriaxone Sodium 2 gm/ (Sodium Chloride) 100 mls @ 100 mls/hr IV Q24H [facility] Ibuprofen (Motrin) 600 mg PO Q6H PRN PRN Reason: Fever Last Admin: 08/17/17 03:43 Dose: 600 mg Levothyroxine Sodium (Levothyroxine) 125 mcg PO DAILY [facility] Last Admin: 08/17/17 09:37 Dose: 125 mcg Magnesium Hydroxide (Milk Of Magnesia) 30 ml PO Q12H PRN PRN Reason: Constipation Mometasone Furoate/Formoterol Fumar (Dulera 200-5 Mcg) 2 puff IH BID [facility] Last Admin: 08/17/17 09:57 Dose: 2 puff Morphine Sulfate (Morphine) 2 mg IVPUSH Q4H PRN PRN Reason: Pain Last Admin: 08/17/17 06:28 Dose: 2 mg Mycophenolate Mofetil (Cellcept) 1,000 mg PO BID [facility] Last Admin: 08/17/17 10:01 Dose: 1,000 mg Nitroglycerin (Nitrostat) 0.4 mg SL ASDIRECTED PRN PRN Reason: Chest Pain Ondansetron HCl (Zofran) 4 mg IVPUSH Q8H PRN PRN Reason: Nausea/Vomiting Last Admin: 08/17/17 09:45 Dose: 4 mg Admin: 08/17/17 02:32 Dose: 4 mg Oxycodone HCl (Oxycodone) 5 mg PO Q6H PRN PRN Reason: Pain Pantoprazole Sodium (Protonix) 40 mg PO DAILY [facility] Last Admin: 08/17/17 09:38 Dose: 40 mg Lipase/Protease/Amylase [Lluvia Rodriguez 36 ,000 Units Capsule] 1 0 each PO BID [facility] Last Admin: 08/17/17 09:40 Dose: Not Given Polyethylene Glycol (Miralax) 17 gm PO DAILY PRN PRN Reason: Constipation Potassium Chloride (Klor-Con M20) 20 meq PO BID [facility] Last Admin: 08/17/17 09:38 Dose: 20 meq Prednisone (Prednisone) 15 mg PO DAILY [facility] Last Admin: 08/17/17 09:38 Dose: 15 mg Promethazine HCl (Phenergan) 25 mg PO Q6H PRN PRN Reason: Nausea/Vomiting Senna/Docusate Sodium (Senna Plus) 1 tab PO BID PRN PRN Reason: Constipation Sodium Chloride (Saline Flush) 10 ml FLUSH ASDIRECTED PRN PRN Reason: Keep Vein Open Last Admin: 08/16/17 23:00 Dose: 10 ml Spironolactone (Aldactone) 50 mg PO DAILY [facility] Last Admin: 08/17/17 09:38 Dose: 50 mg Temazepam (Restoril) 15 mg PO BEDTIME PRN PRN Reason: insomia Venlafaxine HCl (Effexor Xr) 75 mg PO DAILY [facility] Last Admin: 08/17/17 09:37 Dose: 75 mg Assessment/Plan Comment:: I/P: Acute: Pyelonephritis with sepsis - Risk factors: previous episodes of pyelonephritis, urinary incontinence - UA in ED showed slightly cloudy appearance, 2+ protein, 2+ occult blood, positive nitrite, 2+ LE, 10-20 RBC, 40-50 WBC, 10-20 epithelial cells, and many bacteria - She does meet criteria for Sepsis at this time --> she is receiving IV antibiotics, IV fluids, and BC x 2 and lactic acid x 2 ordered -Rocephin 2 gm IV initiated in ED and will continue daily during admit -She received NS 500 ml bolus in ED --> 50 ml/hr; patient became hypotensive therefore ordered 1L bolus, 200 ml x 8 hours, then 100 ml/hr (prelimary Echo report of EF 65%) --> goal MAP > 65 -BC preliminary report is gram negative rods -Lactic acid 2.4 in ED, 0.6 today at 06:30 --> will order repeat today at 16:00 - Will also order Urine culture Heart Failure - BNP 2441 in ED - Home meds include carvedilol 12.5 mg BID, lasix 80 mg BID, and spironolactone 50 mg daily - Do not see MIREYA/ARB as part of regimen --> will attempt to clarify reason for this - 2D Echo report pending - Heart Healthy diet - Continue home meds as above Nausea/Vomiting - Likely 2/2 current illness - Has orders for Zofran prn and Phenergan - With persistence, will order EKG and Troponin x 3 Leukocytosis - WBC 17.62 in ED, today 15.71 - Related to current medical state - Monitor Weakness - exacerbated by current illness - usually independent and is able to ambulate - PT/OT consult Renal insufficiency - Cr 1.1, eGFR 50 in ED, today Cr 1.2 and eGFR - Baseline unknown - IVF NS at 50 ml/hr - Monitor Hx of patient on chronic steroid use - Dx of either polymyalgia rheumatica or polymyositis - Home meds: prednisone 15 mg daily and CellCept - Will order stress dose steroids: hydrocortisone 100 mg q 8 hrs Chronic: Hx prior episodes of pyelonephritis Heart failure HTN RI Cardiac stents COPD ABY Fibromyalgia OA Hypothyroidism TIA Hiatal hernia Pancreatitis Colon polyp with polypectomy Cholecystectomy Plan: Admitted from ED to Med/Surg and now transfer to ICU Other orders as indicated above CM/SW for discharge planning Routine AM labs Continue home meds Heart healthy diet Consult PT/OT DVT Prophylaxis: ANJALI [place] [facility] Prophylaxis: Protonix Ambulate as tolerated Code Status: Full Code PCP: Dr. Jamie Rosario in [place], [place]
[2017-08-17] MEDS ORDERED: Sodium Chloride 0.9% 1,000 ML IV ONE (16:45)
[2017-08-17] MEDS: cefTRIAXone 2 GM in Sodium Chloride 0.9% 100 ML IV SCH (18:11)
[2017-08-17] MEDS: Carvedilol 12.5 MG Tab PO SCH (20:29)
[2017-08-18] MEDS ORDERED: Sodium Chloride 0.9% 1,000 ML IV SCH (02:00)
[2017-08-18] MEDS: Hydrocortisone Sodium Succinate 100 MG/2 ML SDV IVPUSH SCH ×3 (03:42→23:35)
--- NOTE | 2017-08-18 08:51 | CR ---
Chest: Two views of the chest were obtained. Comparison: No prior chest x-ray. Heart size and mediastinum are normal. Lungs are clear. Bony structures are unremarkable. Impression: 1. Nothing acute is seen on two-view chest x-ray. Diagnostic code #1
[2017-08-18] MEDS: Mycophenolate Mofetil 250 MG Cap PO SCH ×2 (08:54→20:05)
[2017-08-18] MEDS: Levothyroxine 125 MCG Tab PO SCH (08:55)
[2017-08-18] MEDS: Spironolactone 25 MG Tab PO SCH (08:55)
[2017-08-18] MEDS: Potassium Chloride 20 MEQ Tab.ER PO SCH ×2 (08:55→20:06)
[2017-08-18] MEDS: Clopidogrel 75 MG Tab PO SCH (08:55)
[2017-08-18] MEDS: Pantoprazole 40 MG Tab.CR PO SCH (08:55)
[2017-08-18] MEDS: Folic Acid 1 MG Tab PO SCH (08:55)
[2017-08-18] MEDS: Venlafaxine 75 MG Cap.ER PO SCH (08:55)
[2017-08-18] MEDS: PROTEASE PO SCH ×2 (08:56→20:12)
[2017-08-18] MEDS: AMYLASE PO SCH ×2 (08:56→20:12)
[2017-08-18] MEDS: LIPASE PO SCH ×2 (08:56→20:12)
[2017-08-18] MEDS: predniSONE 10 MG Tab PO SCH (08:58)
[2017-08-18] MEDS: Carvedilol 12.5 MG Tab PO SCH ×2 (08:59→20:06)
[2017-08-18] MEDS ORDERED: cefTRIAXone 2 GM Vial IVPUSH SCH (09:00)
[2017-08-18] MEDS: Formoterol/Mometasone 200-5 MCG 8.8 GM Inhaler IH SCH ×2 (10:00→20:07)
--- NOTE | 2017-08-18 11:54 | PCM.PN ---
- General Info Date of Service: 08/18/17 Admission Dx/Problem (Free Text): Admission Diagnosis/Problem Admission Diagnosis/Problem Pyelonephritis Subjective Update: In to see Monique. She is resting comfortably in bed. She reports that she is feeling better and has no complaints. She states she has a mild headache but this has improved. Denies N/V. Does endorse some ANTHONY but this is chronic. She has been taking walks around the unit. Functional Status: Reports: Pain Controlled, Tolerating Diet, Ambulating, Urinating - Review of Systems General: Reports: Weakness (improved ). Denies: Fever, Chills HEENT: Reports: No Symptoms. Denies: Sinus Congestion, Sore Throat Pulmonary: Reports: No Symptoms. Denies: Shortness of Breath, Cough Cardiovascular: Reports: Dyspnea on Exertion (chronic ). Denies: Chest Pain, Palpitations, Edema Gastrointestinal: Reports: No Symptoms. Denies: Abdominal Pain, Constipation, Diarrhea, Nausea, Vomiting Genitourinary: Reports: No Symptoms. Denies: Dysuria, Frequency, Burning Musculoskeletal: Reports: Shoulder Pain (shoulder pain at baseline ) Skin: Reports: No Symptoms Neurological: Reports: Headache. Denies: Confusion, Dizziness Psychiatric: Reports: No Symptoms. Denies: Confusion, Depression, Anxiety - Patient Data Vitals - Most Recent: Last Vital Signs Temp 98.3 F 08/18/17 08:00 Pulse 84 08/18/17 08:59 Resp 18 08/18/17 08:00 BP 122/57 L 08/18/17 08:59 Pulse Ox 100 08/18/17 10:01 Weight - Most Recent: 195 lb I&O - Last 24 Hours: Intake & Output 08/17/17 08/18/17 08/18/17 22:59 06:59 14:59 Intake Total 2290 2584 Output Total 1500 900 Balance 790 1684 Lab Results Last 24 Hours: Laboratory Results - last 24 hr 08/17/17 08/17/17 08/17/17 Range/Units 16:18 16:18 22:15 WBC (3.98-10.04) K/mm3 RBC (3.98-5.22) M/mm3 Hgb (11.2-15.7) gm/L Hct (34.1-44.9) % MCV (79.4-94.8) fl MCH (25.6-32.2) pg MCHC (32.2-35.5) g/dl RDW Std Deviation (36.4-46.3) fL Plt Count (182-369) K/mm3 MPV (9.4-12.3) fl Neut % (Auto) (34.0-71.1) % Lymph % (Auto) (19.3-51.7) % [place] % (Auto) (4.7-12.5) % Eos % (Auto) (0.7-5.8) Baso % (Auto) (0.1-1.2) % Neut # (Auto) (1.56-6.13) K/mm3 Lymph # (Auto) (1.18-3.74) K/mm3 [place] # (Auto) (0.24-0.36) K/mm3 Eos # (Auto) (0.04-0.36) K/mm3 Baso # (Auto) (0.01-0.08) K/mm3 Manual Slide Review Sodium (136-145) mEq/L Potassium (3.5-5.1) mEq/L Chloride (98-107) mEq/L Carbon Dioxide (21-32) mEq/L Anion Gap (5-15) BUN (7-18) mg/dL Creatinine (0.55-1.02) mg/dL Est Cr Clr Drug Dosing mL/min Estimated GFR (MDRD) (>60) mL/min BUN/Creatinine Ratio (14-18) Glucose (80-115) mg/dL Lactic Acid 0.8 (0.4-2.0) mmol/L Calcium (8.5-10.1) mg/dL Troponin I < 0.017 < 0.017 (0.00-0.056) ng/mL C-Reactive Protein (<1.0) mg/dL TSH 3rd Generation (0.358-3.74) uIU/mL 08/18/17 08/18/17 08/18/17 Range/Units 06:11 06:11 06:11 WBC 12.21 H (3.98-10.04) K/mm3 RBC 3.56 L (3.98-5.22) M/mm3 Hgb 10.0 L (11.2-15.7) gm/L Hct 31.4 L (34.1-44.9) % MCV 88.2 (79.4-94.8) fl MCH 28.1 (25.6-32.2) pg MCHC 31.8 L (32.2-35.5) g/dl RDW Std Deviation 43.5 (36.4-46.3) fL Plt Count 224 (182-369) K/mm3 MPV 10.1 (9.4-12.3) fl Neut % (Auto) 87.3 H (34.0-71.1) % Lymph % (Auto) 8.2 L (19.3-51.7) % [place] % (Auto) 4.0 L (4.7-12.5) % Eos % (Auto) 0 L (0.7-5.8) Baso % (Auto) 0.0 L (0.1-1.2) % Neut # (Auto) 10.66 H (1.56-6.13) K/mm3 Lymph # (Auto) 1.00 L (1.18-3.74) K/mm3 [place] # (Auto) 0.49 H (0.24-0.36) K/mm3 Eos # (Auto) 0.00 L (0.04-0.36) K/mm3 Baso # (Auto) 0.00 L (0.01-0.08) K/mm3 Manual Slide Review Abnormal smear Sodium 141 (136-145) mEq/L Potassium 4.3 (3.5-5.1) mEq/L Chloride 110 H (98-107) mEq/L Carbon Dioxide 19 L (21-32) mEq/L Anion Gap 16.3 H (5-15) BUN 24 H (7-18) mg/dL Creatinine 0.9 (0.55-1.02) mg/dL Est Cr Clr Drug Dosing 49.95 mL/min Estimated GFR (MDRD) > 60 (>60) mL/min BUN/Creatinine Ratio 26.7 H (14-18) Glucose 137 H (80-115) mg/dL Lactic Acid 0.8 (0.4-2.0) mmol/L Calcium 8.0 L (8.5-10.1) mg/dL Troponin I < 0.017 (0.00-0.056) ng/mL C-Reactive Protein 22.3 H* (<1.0) mg/dL TSH 3rd Generation (0.358-3.74) uIU/mL 08/18/17 Range/Units 06:19 WBC (3.98-10.04) K/mm3 RBC (3.98-5.22) M/mm3 Hgb (11.2-15.7) gm/L Hct (34.1-44.9) % MCV (79.4-94.8) fl MCH (25.6-32.2) pg MCHC (32.2-35.5) g/dl RDW Std Deviation (36.4-46.3) fL Plt Count (182-369) K/mm3 MPV (9.4-12.3) fl Neut % (Auto) (34.0-71.1) % Lymph % (Auto) (19.3-51.7) % [place] % (Auto) (4.7-12.5) % Eos % (Auto) (0.7-5.8) Baso % (Auto) (0.1-1.2) % Neut # (Auto) (1.56-6.13) K/mm3 Lymph # (Auto) (1.18-3.74) K/mm3 [place] # (Auto) (0.24-0.36) K/mm3 Eos # (Auto) (0.04-0.36) K/mm3 Baso # (Auto) (0.01-0.08) K/mm3 Manual Slide Review Sodium (136-145) mEq/L Potassium (3.5-5.1) mEq/L Chloride (98-107) mEq/L Carbon Dioxide (21-32) mEq/L Anion Gap (5-15) BUN (7-18) mg/dL Creatinine (0.55-1.02) mg/dL Est Cr Clr Drug Dosing mL/min Estimated GFR (MDRD) (>60) mL/min BUN/Creatinine Ratio (14-18) Glucose (80-115) mg/dL Lactic Acid (0.4-2.0) mmol/L Calcium (8.5-10.1) mg/dL Troponin I (0.00-0.056) ng/mL C-Reactive Protein (<1.0) mg/dL TSH 3rd Generation 0.178 L (0.358-3.74) uIU/mL Cristopher Results Last 24 Hours: Microbiology 08/17/17 10:47 Urine Culture - Preliminary Urine, Clean Catch Gram Negative Rods 08/16/17 23:00 Aerobic Blood Culture - Preliminary Blood - Venous NO GROWTH AFTER 1 DAY Anaerobic Blood Culture - Preliminary Gram Negative Rods 08/16/17 23:10 Aerobic Blood Culture - Preliminary Blood - Venous - Lab Draw Gram Negative Rods Anaerobic Blood Culture - Preliminary Gram Negative Rods Med Orders - Current: Current Medications Acetaminophen (Tylenol) 650 mg PO Q4H PRN PRN Reason: Pain/Fever Last Admin: 08/17/17 13:49 Dose: 650 mg Hydrocodone Bitart/Acetaminophen ([place] 325-5 Mg) 1 tab PO Q6H PRN PRN Reason: Pain Albuterol/Ipratropium (Duoneb 3.0-0.5 Mg/3 Ml) 3 ml NEB Q4H PRN PRN Reason: Shortness Of Breath/wheezing Bisacodyl (Dulcolax) 5 mg PO DAILY PRN PRN Reason: Constipation Carvedilol (Coreg) 6.25 mg PO BID [facility] Last Admin: 08/18/17 08:59 Dose: 6.25 mg Clopidogrel Bisulfate (Plavix) 75 mg PO DAILY [facility] Last Admin: 08/18/17 08:55 Dose: 75 mg Cyclobenzaprine HCl (Flexeril) 10 mg PO TID PRN PRN Reason: Muscle Spasm Docusate Sodium (Colace) 100 mg PO BID PRN PRN Reason: Constipation Folic Acid (Folic Acid) 1 mg PO DAILY [facility] Last Admin: 08/18/17 08:55 Dose: 1 mg Furosemide (Lasix) 80 mg PO BID [facility] Last Admin: 08/17/17 09:37 Dose: 80 mg Hydrocortisone Sodium Succinate (Solu-Cortef) 100 mg IVPUSH Q8H [facility] Last Admin: 08/18/17 03:42 Dose: 100 mg Ceftriaxone Sodium 2 gm/ (Sodium Chloride) 100 mls @ 100 mls/hr IV Q24H [facility] Last Admin: 08/17/17 18:11 Dose: 100 mls/hr Ibuprofen (Motrin) 600 mg PO Q6H PRN PRN Reason: Fever Last Admin: 08/17/17 03:43 Dose: 600 mg Levothyroxine Sodium (Levothyroxine) 125 mcg PO DAILY [facility] Last Admin: 08/18/17 08:55 Dose: 125 mcg Magnesium Hydroxide (Milk Of Magnesia) 30 ml PO Q12H PRN PRN Reason: Constipation Mometasone Furoate/Formoterol Fumar (Dulera 200-5 Mcg) 2 puff IH BID [facility] Last Admin: 08/18/17 10:00 Dose: 2 puff Morphine Sulfate (Morphine) 2 mg IVPUSH Q4H PRN PRN Reason: Pain Last Admin: 08/17/17 06:28 Dose: 2 mg Mycophenolate Mofetil (Cellcept) 1,000 mg PO BID [facility] Last Admin: 08/18/17 08:54 Dose: 1,000 mg Nitroglycerin (Nitrostat) 0.4 mg SL ASDIRECTED PRN PRN Reason: Chest Pain Ondansetron HCl (Zofran) 4 mg IVPUSH Q8H PRN PRN Reason: Nausea/Vomiting Last Admin: 08/17/17 09:45 Dose: 4 mg Oxycodone HCl (Oxycodone) 5 mg PO Q6H PRN PRN Reason: Pain Pantoprazole Sodium (Protonix) 40 mg PO DAILY [facility] Last Admin: 08/18/17 08:55 Dose: 40 mg Lipase/Protease/Amylase [Creon Dr 36 ,000 Units Capsule] 1 0 each PO BID [facility] Last Admin: 08/18/17 08:56 Dose: Not Given Polyethylene Glycol (Miralax) 17 gm PO DAILY PRN PRN Reason: Constipation Potassium Chloride (Klor-Con M20) 20 meq PO BID [facility] Last Admin: 08/18/17 08:55 Dose: 20 meq Prednisone (Prednisone) 15 mg PO DAILY [facility] Last Admin: 08/18/17 08:58 Dose: 15 mg Promethazine HCl (Phenergan) 25 mg PO Q6H PRN PRN Reason: Nausea/Vomiting Senna/Docusate Sodium (Senna Plus) 1 tab PO BID PRN PRN Reason: Constipation Sodium Chloride (Saline Flush) 10 ml FLUSH ASDIRECTED PRN PRN Reason: Keep Vein Open Last Admin: 08/16/17 23:00 Dose: 10 ml Spironolactone (Aldactone) 50 mg PO DAILY [facility] Last Admin: 08/18/17 08:55 Dose: 50 mg Temazepam (Restoril) 15 mg PO BEDTIME PRN PRN Reason: insomia Venlafaxine HCl (Effexor Xr) 75 mg PO DAILY [facility] Last Admin: 08/18/17 08:55 Dose: 75 mg Discontinued Medications Acetaminophen (Tylenol) 650 mg PO Q6H PRN PRN Reason: Fever Last Admin: 08/16/17 22:44 Dose: 650 mg Carvedilol (Coreg) 12.5 mg PO BID [facility] Last Admin: 08/17/17 09:38 Dose: 12.5 mg Carvedilol (Coreg) 12.5 mg PO BID [facility] Ceftriaxone Sodium (Rocephin) 2 gm IVPUSH Q24H [facility] Ceftriaxone Sodium 2 gm/ (Sodium Chloride) 100 mls @ 200 mls/hr IV ONETIME ONE Stop: 08/16/17 23:58 Last Admin: 08/16/17 23:38 Dose: Not Given Ceftriaxone Sodium 2 gm/ (Sodium Chloride) 100 mls @ 100 mls/hr IV ONETIME ONE Stop: 08/17/17 00:32 Last Admin: 08/16/17 23:47 Dose: 100 mls/hr Sodium Chloride (Normal Saline) 500 mls @ 1,000 mls/hr IV ONETIME ONE Stop: 08/17/17 00:03 Last Admin: 08/16/17 23:46 Dose: 1,000 mls/hr Sodium Chloride (Normal Saline) 1,000 mls @ 50 mls/hr IV ASDIRECTED [facility] Last Admin: 08/17/17 14:15 Dose: 50 mls/hr Promethazine HCl 25 mg/ Sodium (Chloride) 51 mls @ 100 mls/hr IV ONETIME ONE Stop: 08/17/17 12:30 Last Admin: 08/17/17 11:40 Dose: 100 mls/hr Sodium Chloride (Normal Saline) 1,000 mls @ 999 mls/hr IV ONETIME ONE Stop: 08/17/17 17:45 Last Admin: 08/17/17 17:00 Dose: 999 mls/hr Sodium Chloride (Normal Saline) 1,000 mls @ 200 mls/hr IV ASDIRECTED [facility] Stop: 08/18/17 02:00 Last Admin: 08/17/17 17:55 Dose: 200 mls/hr Sodium Chloride (Normal Saline) 1,000 mls @ 100 mls/hr IV ASDIRECTED [facility] Last Admin: 08/18/17 02:06 Dose: 100 mls/hr Morphine Sulfate (Morphine) 4 mg IVPUSH Q2H PRN PRN Reason: Pain Last Admin: 08/16/17 23:53 Dose: 4 mg Ondansetron HCl (Zofran) 4 mg IVPUSH ONETIME ONE Stop: 08/16/17 23:35 Last Admin: 08/16/17 23:47 Dose: 4 mg - Exam Quality Assessment: No: Supplemental Oxygen General: Alert, Oriented, Cooperative, No Acute Distress, Other (Appears more comfortable than yesterday ) HEENT: Pupils Equal, Pupils Reactive, EOMI, Mucous Membr. Moist/[place], Other ( Left eye more open than right ) Neck: Supple. No: Lymphadenopathy Lungs: Clear to Auscultation, Normal Respiratory Effort Cardiovascular: Regular Rate, Regular Rhythm, No Murmurs GI/Abdominal Exam: Normal Bowel Sounds, Soft, Non-Tender, No Distention, Other ( obese ) (Female) Exam: Deferred Back Exam: Normal Inspection, Full Range of Motion Extremities: Normal Inspection, Normal Range of Motion, Non-Tender, No Pedal Edema, Normal Capillary Refill Peripheral Pulses: 2+: Radial (L), Radial (R), Posterior Tibial (L), Posterior Tibial (R), Dorsalis Pedis (L), Dorsalis Pedis (R) Skin: Warm, Dry, Intact Neurological: No New Focal Deficit, Strength Equal Bilateral, Cranial Nerves Intact (grossly) Psy/Mental Status: Alert, Normal Affect, Normal Mood - Problem List Review Problem List Initiated/Reviewed/Updated: Yes - My Orders Last 24 Hours: My Active Orders 08/17/17 11:15 Hydrocortisone Sod Succinate [Solu-CORTEF] 100 mg IVPUSH Q8H 08/17/17 16:55 Communication Order [RC] STAT 08/17/17 16:56 EKG Documentation Completion [RC] ASDIRECTED EKG 12 Lead [EK] Routine 08/19/17 05:11 BASIC METABOLIC PANEL,BMP [CHEM] AM C-REACTIVE PROTEIN [CHEM] AM CBC WITH AUTO DIFF [HEME] AM 08/20/17 05:11 BASIC METABOLIC PANEL,BMP [CHEM] AM C-REACTIVE PROTEIN [CHEM] AM CBC WITH AUTO DIFF [HEME] AM 08/21/17 05:11 BASIC METABOLIC PANEL,BMP [CHEM] AM C-REACTIVE PROTEIN [CHEM] AM CBC WITH AUTO DIFF [HEME] AM 08/22/17 05:11 BASIC METABOLIC PANEL,BMP [CHEM] AM C-REACTIVE PROTEIN [CHEM] AM CBC WITH AUTO DIFF [HEME] AM - Plan Plan:: I/P: Acute: Pyelonephritis with sepsis - Risk factors: previous episodes of pyelonephritis, urinary incontinence - UA in ED showed slightly cloudy appearance, 2+ protein, 2+ occult blood, positive nitrite, 2+ LE, 10-20 RBC, 40-50 WBC, 10-20 epithelial cells, and many bacteria - She does meet criteria for Sepsis at this time --> she is receiving IV antibiotics, IV fluids, and BC x 2 and lactic acid x 2 ordered -Rocephin 2 gm IV initiated in ED and will continue daily during admit -She received NS 500 ml bolus in ED --> 50 ml/hr; patient became hypotensive therefore ordered 1L bolus, 200 ml x 8 hours, then 100 ml/hr (prelimary Echo report of EF 65%) --> goal MAP > 65 --> she has tolerated fluids well and BP has improved and orders have been completed -BC preliminary report is gram negative rods --> ordered repeat BC today -Lactic acid 2.4 in ED, 0.6 yesterday at 06:30, and 0.8 yesterday evening - Urine culture preliminary report gram negative rods - CRP 22.3 today, yesterday 19.1 - Afebrile today Heart Failure - BNP 2441 in ED --> will order BNP with tomorrow's labs - Home meds include carvedilol 12.5 mg BID, lasix 80 mg BID, and spironolactone 50 mg daily - carvedilol decreased to 6.25 mg BID with hypotension, will resume home dose at D/C - Lasix held yesterday w/fluid resuscitation efforts --> will order Lasix 80 mg po x 1 today with resumption of home dose tomorrow (80 mg po BID) - Do not see MIREYA/ARB as part of regimen --> will attempt to clarify reason for this - 2D Echo report read as: EF 65%, impaired relaxation (grade I) pattern of LV diastolic filling, moderate proximal septal hypertrophy - CXR read as nothing acute - 2 gm Na diet - Continue home meds as above Leukocytosis - WBC 12.21 today, yesterday 15.7 - Related to current medical state - Monitor Weakness - Exacerbated by current illness - Usually independent and is able to ambulate without assistance - PT/OT consult Renal insufficiency - Cr 1.1, eGFR 50 in ED, today Cr 0.9 and eGFR >60 - Baseline unknown - Monitor Hx of patient on chronic steroid use - Dx of either polymyalgia rheumatica or polymyositis - Home meds: prednisone 15 mg daily and CellCept - Stress dose steroids of hydrocortisone 100 mg q 8 hr ordered, will adjust to q 12 hr; discontinued prednisone 15 mg po daily with resumption at D/C Hypothyroidism - TSH 0.178 - Could be result of volume status - Will increase levothyroxine from 125 mcg po daily to 137 mcg po daily Resolved: Nausea/Vomiting - Likely 2/2 current illness - Has orders for Zofran prn and Phenergan prn - With these symptoms persisting, will order EKG and Troponin x 3 --> these were normal Chronic: Hx prior episodes of pyelonephritis Heart failure HTN VT Cardiac stents COPD ABY Fibromyalgia OA Hypothyroidism TIA Hiatal hernia Pancreatitis Colon polyp with polypectomy Cholecystectomy Plan: Admitted from ED to Med/Surg and transferred to ICU Other orders as indicated above CM/SW for discharge planning --> potential plan for discharge on Thursday, Routine AM labs Continue home meds 2 gm Na diet Continue PT/OT DVT Prophylaxis: ANJALI [place] GI Prophylaxis: Protonix Ambulate as tolerated Code Status: Full Code PCP: Dr. Jamie Rosario in [place], [place]
[2017-08-18] MEDS: Acetaminophen 325 MG Tab PO PRN (12:08)
[2017-08-18] MEDS ORDERED: Furosemide 40 MG Tab PO ONE (12:19)
[2017-08-18] MEDS: cefTRIAXone 2 GM in Sodium Chloride 0.9% 100 ML IV SCH (18:13)
[2017-08-19] MEDS: Temazepam 15 MG Cap PO PRN ×2 (01:14→20:04)
[2017-08-19] MEDS: Carvedilol 12.5 MG Tab PO SCH ×2 (08:30→20:01)
[2017-08-19] MEDS: Mycophenolate Mofetil 250 MG Cap PO SCH ×2 (08:30→20:00)
[2017-08-19] MEDS: Spironolactone 25 MG Tab PO SCH (08:30)
[2017-08-19] MEDS: Potassium Chloride 20 MEQ Tab.ER PO SCH ×2 (08:31→20:02)
[2017-08-19] MEDS: Venlafaxine 75 MG Cap.ER PO SCH (08:31)
[2017-08-19] MEDS: Folic Acid 1 MG Tab PO SCH (08:31)
[2017-08-19] MEDS: Clopidogrel 75 MG Tab PO SCH (08:32)
[2017-08-19] MEDS: Pantoprazole 40 MG Tab.CR PO SCH (08:32)
[2017-08-19] MEDS: Furosemide 40 MG Tab PO SCH ×2 (08:32→20:02)
[2017-08-19] MEDS: LIPASE PO SCH ×2 (10:30→20:22)
[2017-08-19] MEDS: PROTEASE PO SCH ×2 (10:30→20:22)
[2017-08-19] MEDS: AMYLASE PO SCH ×2 (10:30→20:22)
[2017-08-19] MEDS: Formoterol/Mometasone 200-5 MCG 8.8 GM Inhaler IH SCH ×2 (10:41→20:06)
[2017-08-19] MEDS: Hydrocortisone Sodium Succinate 100 MG/2 ML SDV IVPUSH SCH (11:44)
[2017-08-19] MEDS: ALPRAZolam 0.5 MG Tab PO PRN (12:31)
--- NOTE | 2017-08-19 13:37 | PCM.PN ---
- General Info Date of Service: 08/19/17 Admission Dx/Problem (Free Text): Admission Diagnosis/Problem Admission Diagnosis/Problem Pyelonephritis Subjective Update: In to see Monique. She is resting comfortably in bed. She reports that she is feeling better and has no complaints. She reports she had some issues sleeping last night and takes Xanax occasionally for insomnia. She reports she was prescribed Ambien at one time but had episode of sleep walking and therefore does not like this medication. She reports her diagnosis of polymyositis also affects her sleep at times. Endorses some chronic ANTHONY. She does wear O2 when she is at home in [place] but has not needed it while she has been in [place]. She states she has been ambulating without difficulty. Functional Status: Reports: Pain Controlled, Tolerating Diet, Ambulating, Urinating - Review of Systems General: Reports: No Symptoms, Fatigue, Other (Difficulty sleeping last night. ) . Denies: Fever, Malaise HEENT: Reports: No Symptoms. Denies: Sinus Congestion, Sore Throat Pulmonary: Reports: No Symptoms. Denies: Shortness of Breath, Cough Cardiovascular: Reports: Dyspnea on Exertion (chronic ). Denies: Chest Pain, Palpitations Gastrointestinal: Reports: No Symptoms. Denies: Abdominal Pain, Constipation, Diarrhea, Nausea, Vomiting Genitourinary: Reports: No Symptoms. Denies: Dysuria, Frequency, Burning Musculoskeletal: Reports: Shoulder Pain (at baseline ) Skin: Reports: No Symptoms Neurological: Reports: No Symptoms. Denies: Confusion, Dizziness, Headache Psychiatric: Reports: No Symptoms. Denies: Confusion, Depression, Anxiety - Patient Data Vitals - Most Recent: Last Vital Signs Temp 97.6 F 08/19/17 08:35 Pulse 74 08/19/17 08:35 Resp 18 08/19/17 08:35 BP 134/70 08/19/17 08:35 Pulse Ox 100 08/19/17 10:43 Weight - Most Recent: 191 lb 3.2 oz I&O - Last 24 Hours: Intake & Output 08/18/17 08/19/17 08/19/17 22:59 06:59 14:59 Intake Total 1522 237 180 Output Total 350 Balance 1172 237 180 Lab Results Last 24 Hours: Laboratory Results - last 24 hr 06/20/18 06/20/18 06/20/18 Range/Units 05:57 05:57 05:57 WBC 13.20 H (3.98-10.04) K/mm3 RBC 3.50 L (3.98-5.22) M/mm3 Hgb 9.9 L (11.2-15.7) gm/L Hct 30.6 L (34.1-44.9) % MCV 87.4 (79.4-94.8) fl MCH 28.3 (25.6-32.2) pg MCHC 32.4 (32.2-35.5) g/dl RDW Std Deviation 43.1 (36.4-46.3) fL Plt Count 264 (182-369) K/mm3 MPV 10.2 (9.4-12.3) fl Neut % (Auto) 78.1 H (34.0-71.1) % Lymph % (Auto) 14.1 L (19.3-51.7) % [place] % (Auto) 7.5 (4.7-12.5) % Eos % (Auto) 0 L (0.7-5.8) Baso % (Auto) 0.0 L (0.1-1.2) % Neut # (Auto) 10.31 H (1.56-6.13) K/mm3 Lymph # (Auto) 1.86 (1.18-3.74) K/mm3 [place] # (Auto) 0.99 H (0.24-0.36) K/mm3 Eos # (Auto) 0.00 L (0.04-0.36) K/mm3 Baso # (Auto) 0.00 L (0.01-0.08) K/mm3 Sodium 136 (136-145) mEq/L Potassium 4.2 (3.5-5.1) mEq/L Chloride 106 (98-107) mEq/L Carbon Dioxide 22 (21-32) mEq/L Anion Gap 12.2 (5-15) BUN 29 H (7-18) mg/dL Creatinine 0.9 (0.55-1.02) mg/dL Est Cr Clr Drug Dosing 49.95 mL/min Estimated GFR (MDRD) > 60 (>60) mL/min BUN/Creatinine Ratio 32.2 H (14-18) Glucose 113 (80-115) mg/dL Lactic Acid 1.7 (0.4-2.0) mmol/L Calcium 8.5 (8.5-10.1) mg/dL C-Reactive Protein 11.1 H* (<1.0) mg/dL NT-Pro-B Natriuret Pep (0-125) pg/mL 08/19/17 Range/Units 05:57 WBC (3.98-10.04) K/mm3 RBC (3.98-5.22) M/mm3 Hgb (11.2-15.7) gm/L Hct (34.1-44.9) % MCV (79.4-94.8) fl MCH (25.6-32.2) pg MCHC (32.2-35.5) g/dl RDW Std Deviation (36.4-46.3) fL Plt Count (182-369) K/mm3 MPV (9.4-12.3) fl Neut % (Auto) (34.0-71.1) % Lymph % (Auto) (19.3-51.7) % [place] % (Auto) (4.7-12.5) % Eos % (Auto) (0.7-5.8) Baso % (Auto) (0.1-1.2) % Neut # (Auto) (1.56-6.13) K/mm3 Lymph # (Auto) (1.18-3.74) K/mm3 [place] # (Auto) (0.24-0.36) K/mm3 Eos # (Auto) (0.04-0.36) K/mm3 Baso # (Auto) (0.01-0.08) K/mm3 Sodium (136-145) mEq/L Potassium (3.5-5.1) mEq/L Chloride (98-107) mEq/L Carbon Dioxide (21-32) mEq/L Anion Gap (5-15) BUN (7-18) mg/dL Creatinine (0.55-1.02) mg/dL Est Cr Clr Drug Dosing mL/min Estimated GFR (MDRD) (>60) mL/min BUN/Creatinine Ratio (14-18) Glucose (80-115) mg/dL Lactic Acid (0.4-2.0) mmol/L Calcium (8.5-10.1) mg/dL C-Reactive Protein (<1.0) mg/dL NT-Pro-B Natriuret Pep 4300 H (0-125) pg/mL Cristopher Results Last 24 Hours: Microbiology 08/18/17 10:26 Aerobic Blood Culture - Preliminary Blood - Venous NO GROWTH AFTER 1 DAY Anaerobic Blood Culture - Preliminary NO GROWTH AFTER 1 DAY 08/18/17 10:32 Aerobic Blood Culture - Preliminary Blood - Venous - Lab Draw NO GROWTH AFTER 1 DAY Anaerobic Blood Culture - Preliminary NO GROWTH AFTER 1 DAY 08/16/17 23:00 Aerobic Blood Culture - Preliminary Blood - Venous NO GROWTH AFTER 2 DAYS Anaerobic Blood Culture - Preliminary Escherichia Coli 08/16/17 23:10 Aerobic Blood Culture - Final Blood - Venous - Lab Draw Escherichia Coli Anaerobic Blood Culture - Preliminary Escherichia Coli 08/17/17 10:47 Urine Culture - Preliminary Urine, Clean Catch Escherichia Coli Med Orders - Current: Current Medications Acetaminophen (Tylenol) 650 mg PO Q4H PRN PRN Reason: Pain/Fever Last Admin: 08/18/17 12:08 Dose: 650 mg Hydrocodone Bitart/Acetaminophen ([place] 325-5 Mg) 1 tab PO Q6H PRN PRN Reason: Pain Albuterol/Ipratropium (Duoneb 3.0-0.5 Mg/3 Ml) 3 ml NEB Q4H PRN PRN Reason: Shortness Of Breath/wheezing Alprazolam (Xanax) 0.5 mg PO BID PRN PRN Reason: Insomnia Last Admin: 08/19/17 12:31 Dose: 0.5 mg Bisacodyl (Dulcolax) 5 mg PO DAILY PRN PRN Reason: Constipation Carvedilol (Coreg) 6.25 mg PO BID [facility] Last Admin: 08/19/17 08:30 Dose: 6.25 mg Clopidogrel Bisulfate (Plavix) 75 mg PO DAILY [facility] Last Admin: 08/19/17 08:32 Dose: 75 mg Cyclobenzaprine HCl (Flexeril) 10 mg PO TID PRN PRN Reason: Muscle Spasm Docusate Sodium (Colace) 100 mg PO BID PRN PRN Reason: Constipation Folic Acid (Folic Acid) 1 mg PO DAILY [facility] Last Admin: 08/19/17 08:31 Dose: 1 mg Furosemide (Lasix) 80 mg PO BID [facility] Last Admin: 08/19/17 08:32 Dose: 80 mg Hydrocortisone Sodium Succinate (Solu-Cortef) 100 mg IVPUSH Q12H [facility] Last Admin: 08/19/17 11:44 Dose: 100 mg Ceftriaxone Sodium 2 gm/ (Sodium Chloride) 100 mls @ 100 mls/hr IV Q24H [facility] Last Admin: 08/18/17 18:13 Dose: 100 mls/hr Ibuprofen (Motrin) 600 mg PO Q6H PRN PRN Reason: Fever Last Admin: 08/17/17 03:43 Dose: 600 mg Levothyroxine Sodium (Levothroid) 137 mcg PO ACBREAKFAST [facility] Last Admin: 08/19/17 05:05 Dose: 137 mcg Magnesium Hydroxide (Milk Of Magnesia) 30 ml PO Q12H PRN PRN Reason: Constipation Mometasone Furoate/Formoterol Fumar (Dulera 200-5 Mcg) 2 puff IH BID [facility] Last Admin: 08/19/17 10:41 Dose: 2 puff Morphine Sulfate (Morphine) 2 mg IVPUSH Q4H PRN PRN Reason: Pain Last Admin: 08/17/17 06:28 Dose: 2 mg Mycophenolate Mofetil (Cellcept) 1,000 mg PO BID [facility] Last Admin: 08/19/17 08:30 Dose: 1,000 mg Nitroglycerin (Nitrostat) 0.4 mg SL ASDIRECTED PRN PRN Reason: Chest Pain Ondansetron HCl (Zofran) 4 mg IVPUSH Q8H PRN PRN Reason: Nausea/Vomiting Last Admin: 08/17/17 09:45 Dose: 4 mg Oxycodone HCl (Oxycodone) 5 mg PO Q6H PRN PRN Reason: Pain Pantoprazole Sodium (Protonix) 40 mg PO DAILY [facility] Last Admin: 08/19/17 08:32 Dose: 40 mg Lipase/Protease/Amylase [Creon Dr 36 ,000 Units Capsule] 1 0 each PO BID [facility] Last Admin: 08/19/17 10:30 Dose: Not Given Polyethylene Glycol (Miralax) 17 gm PO DAILY PRN PRN Reason: Constipation Potassium Chloride (Klor-Con M20) 20 meq PO BID [facility] Last Admin: 08/19/17 08:31 Dose: 20 meq Prednisone (Prednisone) 15 mg PO DAILY [facility] Promethazine HCl (Phenergan) 25 mg PO Q6H PRN PRN Reason: Nausea/Vomiting Senna/Docusate Sodium (Senna Plus) 1 tab PO BID PRN PRN Reason: Constipation Sodium Chloride (Saline Flush) 10 ml FLUSH ASDIRECTED PRN PRN Reason: Keep Vein Open Last Admin: 08/16/17 23:00 Dose: 10 ml Spironolactone (Aldactone) 50 mg PO DAILY [facility] Last Admin: 08/19/17 08:30 Dose: 50 mg Temazepam (Restoril) 15 mg PO BEDTIME PRN PRN Reason: insomia Last Admin: 08/19/17 01:14 Dose: 15 mg Venlafaxine HCl (Effexor Xr) 75 mg PO DAILY [facility] Last Admin: 08/19/17 08:31 Dose: 75 mg Discontinued Medications Acetaminophen (Tylenol) 650 mg PO Q6H PRN PRN Reason: Fever Last Admin: 08/16/17 22:44 Dose: 650 mg Carvedilol (Coreg) 12.5 mg PO BID [facility] Last Admin: 08/17/17 09:38 Dose: 12.5 mg Carvedilol (Coreg) 12.5 mg PO BID [facility] Ceftriaxone Sodium (Rocephin) 2 gm IVPUSH Q24H [facility] Furosemide (Lasix) 80 mg PO ONETIME ONE Stop: 08/18/17 12:20 Last Admin: 08/18/17 12:58 Dose: 80 mg Hydrocortisone Sodium Succinate (Solu-Cortef) 100 mg IVPUSH Q8H [facility] Last Admin: 08/18/17 12:01 Dose: 100 mg Ceftriaxone Sodium 2 gm/ (Sodium Chloride) 100 mls @ 200 mls/hr IV ONETIME ONE Stop: 08/16/17 23:58 Last Admin: 08/16/17 23:38 Dose: Not Given Ceftriaxone Sodium 2 gm/ (Sodium Chloride) 100 mls @ 100 mls/hr IV ONETIME ONE Stop: 08/17/17 00:32 Last Admin: 08/16/17 23:47 Dose: 100 mls/hr Sodium Chloride (Normal Saline) 500 mls @ 1,000 mls/hr IV ONETIME ONE Stop: 08/17/17 00:03 Last Admin: 08/16/17 23:46 Dose: 1,000 mls/hr Sodium Chloride (Normal Saline) 1,000 mls @ 50 mls/hr IV ASDIRECTED [facility] Last Admin: 08/17/17 14:15 Dose: 50 mls/hr Promethazine HCl 25 mg/ Sodium (Chloride) 51 mls @ 100 mls/hr IV ONETIME ONE Stop: 08/17/17 12:30 Last Admin: 08/17/17 11:40 Dose: 100 mls/hr Sodium Chloride (Normal Saline) 1,000 mls @ 999 mls/hr IV ONETIME ONE Stop: 08/17/17 17:45 Last Admin: 08/17/17 17:00 Dose: 999 mls/hr Sodium Chloride (Normal Saline) 1,000 mls @ 200 mls/hr IV ASDIRECTED [facility] Stop: 08/18/17 02:00 Last Admin: 08/17/17 17:55 Dose: 200 mls/hr Sodium Chloride (Normal Saline) 1,000 mls @ 100 mls/hr IV ASDIRECTED [facility] Last Admin: 08/18/17 02:06 Dose: 100 mls/hr Levothyroxine Sodium (Levothyroxine) 125 mcg PO DAILY [facility] Last Admin: 08/18/17 08:55 Dose: 125 mcg Morphine Sulfate (Morphine) 4 mg IVPUSH Q2H PRN PRN Reason: Pain Last Admin: 08/16/17 23:53 Dose: 4 mg Ondansetron HCl (Zofran) 4 mg IVPUSH ONETIME ONE Stop: 08/16/17 23:35 Last Admin: 08/16/17 23:47 Dose: 4 mg Prednisone (Prednisone) 15 mg PO DAILY [facility] Last Admin: 08/18/17 08:58 Dose: 15 mg - Exam Quality Assessment: No: Supplemental Oxygen General: Alert, Oriented, Cooperative, No Acute Distress HEENT: Pupils Equal, Pupils Reactive, EOMI, Mucous Membr. Moist/[place] Neck: Supple. No: Lymphadenopathy Lungs: Clear to Auscultation, Normal Respiratory Effort Cardiovascular: Regular Rate, Regular Rhythm, No Murmurs GI/Abdominal Exam: Normal Bowel Sounds, Soft, Non-Tender, No Distention, Other ( obese) (Female) Exam: Deferred Back Exam: Normal Inspection, Full Range of Motion Extremities: Normal Inspection, Normal Range of Motion, Non-Tender, No Pedal Edema Peripheral Pulses: 2+: Radial (L), Radial (R), Posterior Tibial (L), Posterior Tibial (R), Dorsalis Pedis (L), Dorsalis Pedis (R) Skin: Warm, Dry, Intact Neurological: No New Focal Deficit, Normal Gait, Strength Equal Bilateral, Cranial Nerves Intact (grossly ) Psy/Mental Status: Alert, Normal Affect, Normal Mood - Problem List Review Problem List Initiated/Reviewed/Updated: Yes - My Orders Last 24 Hours: My Active Orders 08/19/17 00:00 Hydrocortisone Sod Succinate [Solu-CORTEF] 100 mg IVPUSH Q12H 08/19/17 06:00 Levothyroxine [Levothroid] 137 mcg PO ACBREAKFAST 08/19/17 11:49 ALPRAZolam [Xanax] 0.5 mg PO BID PRN 08/20/17 05:11 BASIC METABOLIC PANEL,BMP [CHEM] AM C-REACTIVE PROTEIN [CHEM] AM CBC WITH AUTO DIFF [HEME] AM 08/21/17 05:11 BASIC METABOLIC PANEL,BMP [CHEM] AM C-REACTIVE PROTEIN [CHEM] AM CBC WITH AUTO DIFF [HEME] AM 08/22/17 05:11 BASIC METABOLIC PANEL,BMP [CHEM] AM C-REACTIVE PROTEIN [CHEM] AM CBC WITH AUTO DIFF [HEME] AM 08/22/17 09:00 predniSONE 15 mg PO DAILY - Plan Plan:: I/P: Acute: Pyelonephritis with sepsis - Risk factors: previous episodes of pyelonephritis, urinary incontinence - UA in ED showed slightly cloudy appearance, 2+ protein, 2+ occult blood, positive nitrite, 2+ LE, 10-20 RBC, 40-50 WBC, 10-20 epithelial cells, and many bacteria - She does meet criteria for Sepsis at this time --> she is receiving IV antibiotics, IV fluids, and BC x 2 and lactic acid x 2 ordered -Rocephin 2 gm IV initiated in ED and will continue daily during admit -She received NS 500 ml bolus in ED --> 50 ml/hr; patient became hypotensive therefore ordered 1L bolus, 200 ml x 8 hours, then 100 ml/hr (prelimary Echo report of EF 65%) --> goal MAP > 65 --> she has tolerated fluids well and BP has improved and orders have been completed -BC preliminary report is gram negative rods --> ordered repeat BC today -Lactic acid 2.4 in ED, 0.6 on 08/17/17 at 06:30, and 0.8 on 08/17/17 in evening - Urine culture: E coli - BC: E coli --> susceptible to Rocephin, will continue Rocephin and plan for Keflex 500 mg po q 12 hr at D/C - Repeat BC show no growth after 1 day - CRP 11.1 today, yesterday 22.3 - Afebrile today Heart Failure - BNP 2441 in ED --> BNP 4300 today - Home meds include carvedilol 12.5 mg BID, lasix 80 mg BID, and spironolactone 50 mg daily - carvedilol decreased to 6.25 mg BID with hypotension --> will resume home dose today - Lasix held yesterday w/fluid resuscitation efforts --> will order Lasix 80 mg po x 1 today with resumption of home dose tomorrow (80 mg po BID) - Do not see MIREYA/ARB as part of regimen --> 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 secondary 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 - 2D Echo report read as: EF 65%, impaired relaxation (grade I) pattern of LV diastolic filling, moderate proximal septal hypertrophy - CXR read as nothing acute - 2 gm Na diet - Patient reports home O2 use when she is in [place] but does not require O2 while in [place]; O2 prn ordered - Continue home meds as above Leukocytosis - WBC 13.2 today, yesterday 12.21 - Related to current medical state and receiving steroids - Monitor Weakness - Exacerbated by current illness - Usually independent and is able to ambulate without assistance - PT/OT consult Renal insufficiency - Cr 1.1, eGFR 50 in ED, today Cr 0.9 and eGFR >60 - Baseline unknown - Monitor Hx of patient on chronic steroid use - Dx of polymyositis in 2006 - Home meds: prednisone 15 mg daily and CellCept - Stress dose steroids of hydrocortisone 100 mg q 8 hr ordered initially and then adjusted to q 12 hr yesterday; also held prednisone 15 mg po daily --> will discontinue hydrocortisone today and resume patient's home dose of prednisone Hypothyroidism - TSH 0.178 - Could be result of volume status - Will increase levothyroxine from 125 mcg po daily to 137 mcg po daily Difficulty sleeping - Patient reports that she takes Xanax occasionally for insomnia that is related to muscle aches with polymyositis - She reports she does not tolerate Ambien - Will order Xanax 0.5 mg BID prn insomnia/anxiety Resolved: Nausea/Vomiting - Likely 2/2 current illness - Has orders for Zofran prn and Phenergan prn - With these symptoms persisting, will order EKG and Troponin x 3 --> these were normal Chronic: Hx prior episodes of pyelonephritis Heart failure HTN OK Cardiac stents COPD ABY Fibromyalgia OA Hypothyroidism TIA Hiatal hernia Pancreatitis Colon polyp with polypectomy Cholecystectomy Plan: Admitted from ED to Med/Surg and transferred to ICU --> transfer to [facility] with Tele today Other orders as indicated above CM/SW for discharge planning --> potential plan for discharge on Thursday, Routine AM labs Continue home meds 2 gm Na diet Continue PT/OT DVT Prophylaxis: ANJALI [place] GI Prophylaxis: Protonix Ambulate as tolerated Code Status: Full Code PCP: Dr. Jamie Rosario in [place], [place]
[2017-08-19] MEDS: cefTRIAXone 2 GM in Sodium Chloride 0.9% 100 ML IV SCH (18:05)
[2017-08-19] MEDS ORDERED: ALPRAZolam 0.5 MG Tab PO ONE (20:06)
[2017-08-20] MEDS: Formoterol/Mometasone 200-5 MCG 8.8 GM Inhaler IH SCH ×2 (09:00→20:16)
[2017-08-20] MEDS: Spironolactone 25 MG Tab PO SCH (09:25)
[2017-08-20] MEDS: Potassium Chloride 20 MEQ Tab.ER PO SCH ×2 (09:26→20:04)
[2017-08-20] MEDS: Pantoprazole 40 MG Tab.CR PO SCH (09:27)
[2017-08-20] MEDS: Clopidogrel 75 MG Tab PO SCH (09:27)
[2017-08-20] MEDS: Folic Acid 1 MG Tab PO SCH (09:27)
[2017-08-20] MEDS: Furosemide 40 MG Tab PO SCH ×2 (09:29→20:03)
[2017-08-20] MEDS: Carvedilol 12.5 MG Tab PO SCH ×2 (09:29→20:03)
[2017-08-20] MEDS: Venlafaxine 75 MG Cap.ER PO SCH (09:29)
[2017-08-20] MEDS: LIPASE PO SCH ×2 (09:33→20:21)
[2017-08-20] MEDS: Mycophenolate Mofetil 250 MG Cap PO SCH ×2 (09:33→20:04)
[2017-08-20] MEDS: PROTEASE PO SCH ×2 (09:33→20:21)
[2017-08-20] MEDS: AMYLASE PO SCH ×2 (09:33→20:21)
--- NOTE | 2017-08-20 12:50 | PCM.PN ---
- General Info Date of Service: 08/20/17 Admission Dx/Problem (Free Text): Admission Diagnosis/Problem Admission Diagnosis/Problem Pyelonephritis Subjective Update: In to see Monique. She is resting comfortably in bed. She continues to report that she is feeling better. She slept better last night after receiving Xanax. Denies chest pain, dyspnea at rest, or any GI/ complaints. She has been ambulating without issues; she does experience some ANTHONY which is chronic. No concerns from nursing. Functional Status: Reports: Pain Controlled, Tolerating Diet, Ambulating, Urinating - Review of Systems General: Reports: No Symptoms, Fatigue (present but improving ). Denies: Fever , Chills HEENT: Reports: No Symptoms. Denies: Sinus Congestion, Sore Throat Pulmonary: Reports: No Symptoms. Denies: Shortness of Breath, Cough Cardiovascular: Reports: Dyspnea on Exertion (chronic). Denies: Chest Pain, Palpitations Gastrointestinal: Reports: No Symptoms. Denies: Abdominal Pain, Constipation, Diarrhea, Nausea, Vomiting Genitourinary: Reports: No Symptoms. Denies: Dysuria, Frequency, Burning Musculoskeletal: Reports: No Symptoms, Joint Pain (at baseline ) Skin: Reports: No Symptoms Neurological: Reports: No Symptoms. Denies: Confusion, Dizziness, Headache Psychiatric: Reports: No Symptoms. Denies: Confusion, Depression, Anxiety - Patient Data Vitals - Most Recent: Last Vital Signs Temp 97.8 F 08/20/17 09:00 Pulse 66 08/20/17 09:29 Resp 16 08/20/17 09:00 BP 110/65 08/20/17 09:29 Pulse Ox 99 08/20/17 09:00 Weight - Most Recent: 187 lb 1.6 oz I&O - Last 24 Hours: Intake & Output 08/19/17 08/20/17 08/20/17 22:59 06:59 14:59 Intake Total 1639 460 Output Total 300 600 840 Balance 1339 -600 -380 Lab Results Last 24 Hours: Laboratory Results - last 24 hr 08/20/17 08/20/17 Range/Units 05:35 05:35 WBC 13.55 H (3.98-10.04) K/mm3 RBC 3.77 L (3.98-5.22) M/mm3 Hgb 10.7 L (11.2-15.7) gm/L Hct 33.0 L (34.1-44.9) % MCV 87.5 (79.4-94.8) fl MCH 28.4 (25.6-32.2) pg MCHC 32.4 (32.2-35.5) g/dl RDW Std Deviation 44.3 (36.4-46.3) fL Plt Count 270 (182-369) K/mm3 MPV 10.1 (9.4-12.3) fl Neut % (Auto) 66.4 (34.0-71.1) % Lymph % (Auto) 22.3 (19.3-51.7) % [place] % (Auto) 9.9 (4.7-12.5) % Eos % (Auto) 0.7 (0.7-5.8) Baso % (Auto) 0.1 (0.1-1.2) % Neut # (Auto) 9.00 H (1.56-6.13) K/mm3 Lymph # (Auto) 3.02 (1.18-3.74) K/mm3 [place] # (Auto) 1.34 H (0.24-0.36) K/mm3 Eos # (Auto) 0.10 (0.04-0.36) K/mm3 Baso # (Auto) 0.01 (0.01-0.08) K/mm3 Sodium 141 (136-145) mEq/L Potassium 3.8 (3.5-5.1) mEq/L Chloride 104 (98-107) mEq/L Carbon Dioxide 26 (21-32) mEq/L Anion Gap 14.8 (5-15) BUN 33 H (7-18) mg/dL Creatinine 0.9 (0.55-1.02) mg/dL Est Cr Clr Drug Dosing 49.95 mL/min Estimated GFR (MDRD) > 60 (>60) mL/min BUN/Creatinine Ratio 36.7 H (14-18) Glucose 87 (80-115) mg/dL Calcium 8.3 L (8.5-10.1) mg/dL C-Reactive Protein 5.8 H* (<1.0) mg/dL Cristopher Results Last 24 Hours: Microbiology 08/18/17 10:26 Aerobic Blood Culture - Preliminary Blood - Venous NO GROWTH AFTER 2 DAYS Anaerobic Blood Culture - Preliminary NO GROWTH AFTER 2 DAYS 08/18/17 10:32 Aerobic Blood Culture - Preliminary Blood - Venous - Lab Draw NO GROWTH AFTER 2 DAYS Anaerobic Blood Culture - Preliminary NO GROWTH AFTER 2 DAYS 08/17/17 10:47 Urine Culture - Preliminary Urine, Clean Catch Escherichia Coli 08/16/17 23:00 Aerobic Blood Culture - Preliminary Blood - Venous NO GROWTH AFTER 3 DAYS Anaerobic Blood Culture - Preliminary Escherichia Coli 08/16/17 23:10 Aerobic Blood Culture - Final Blood - Venous - Lab Draw Escherichia Coli Anaerobic Blood Culture - Preliminary Escherichia Coli Med Orders - Current: Current Medications Acetaminophen (Tylenol) 650 mg PO Q4H PRN PRN Reason: Pain/Fever Last Admin: 08/18/17 12:08 Dose: 650 mg Hydrocodone Bitart/Acetaminophen ([place] 325-5 Mg) 1 tab PO Q6H PRN PRN Reason: Pain Albuterol/Ipratropium (Duoneb 3.0-0.5 Mg/3 Ml) 3 ml NEB Q4H PRN PRN Reason: Shortness Of Breath/wheezing Alprazolam (Xanax) 0.5 mg PO BID PRN PRN Reason: Insomnia Last Admin: 08/19/17 12:31 Dose: 0.5 mg Bisacodyl (Dulcolax) 5 mg PO DAILY PRN PRN Reason: Constipation Carvedilol (Coreg) 12.5 mg PO BID [facility] Last Admin: 08/20/17 09:29 Dose: 12.5 mg Clopidogrel Bisulfate (Plavix) 75 mg PO DAILY [facility] Last Admin: 08/20/17 09:27 Dose: 75 mg Cyclobenzaprine HCl (Flexeril) 10 mg PO TID PRN PRN Reason: Muscle Spasm Docusate Sodium (Colace) 100 mg PO BID PRN PRN Reason: Constipation Folic Acid (Folic Acid) 1 mg PO DAILY [facility] Last Admin: 08/20/17 09:27 Dose: 1 mg Furosemide (Lasix) 80 mg PO BID [facility] Last Admin: 08/20/17 09:29 Dose: 80 mg Ceftriaxone Sodium 2 gm/ (Sodium Chloride) 100 mls @ 100 mls/hr IV Q24H [facility] Last Admin: 08/19/17 18:05 Dose: 100 mls/hr Ibuprofen (Motrin) 600 mg PO Q6H PRN PRN Reason: Fever Last Admin: 08/17/17 03:43 Dose: 600 mg Levothyroxine Sodium (Levothroid) 137 mcg PO ACBREAKFAST [facility] Last Admin: 08/20/17 05:00 Dose: 137 mcg Magnesium Hydroxide (Milk Of Magnesia) 30 ml PO Q12H PRN PRN Reason: Constipation Mometasone Furoate/Formoterol Fumar (Dulera 200-5 Mcg) 2 puff IH BID [facility] Last Admin: 08/20/17 09:00 Dose: 2 puff Morphine Sulfate (Morphine) 2 mg IVPUSH Q4H PRN PRN Reason: Pain Last Admin: 08/17/17 06:28 Dose: 2 mg Mycophenolate Mofetil (Cellcept) 1,000 mg PO BID [facility] Last Admin: 08/20/17 09:33 Dose: 1,000 mg Nitroglycerin (Nitrostat) 0.4 mg SL ASDIRECTED PRN PRN Reason: Chest Pain Ondansetron HCl (Zofran) 4 mg IVPUSH Q8H PRN PRN Reason: Nausea/Vomiting Last Admin: 08/17/17 09:45 Dose: 4 mg Oxycodone HCl (Oxycodone) 5 mg PO Q6H PRN PRN Reason: Pain Pantoprazole Sodium (Protonix) 40 mg PO DAILY [facility] Last Admin: 08/20/17 09:27 Dose: 40 mg Lipase/Protease/Amylase [Creon Dr 36 ,000 Units Capsule] 1 0 each PO BID [facility] Last Admin: 08/20/17 09:33 Dose: Not Given Polyethylene Glycol (Miralax) 17 gm PO DAILY PRN PRN Reason: Constipation Potassium Chloride (Klor-Con M20) 20 meq PO BID [facility] Last Admin: 08/20/17 09:26 Dose: 20 meq Prednisone (Prednisone) 15 mg PO DAILY [facility] Promethazine HCl (Phenergan) 25 mg PO Q6H PRN PRN Reason: Nausea/Vomiting Senna/Docusate Sodium (Senna Plus) 1 tab PO BID PRN PRN Reason: Constipation Sodium Chloride (Saline Flush) 10 ml FLUSH ASDIRECTED PRN PRN Reason: Keep Vein Open Last Admin: 08/16/17 23:00 Dose: 10 ml Spironolactone (Aldactone) 50 mg PO DAILY [facility] Last Admin: 06/21/18 09:25 Dose: 50 mg Temazepam (Restoril) 15 mg PO BEDTIME PRN PRN Reason: insomia Last Admin: 08/19/17 20:04 Dose: 15 mg Venlafaxine HCl (Effexor Xr) 75 mg PO DAILY [facility] Last Admin: 08/20/17 09:29 Dose: 75 mg Discontinued Medications Acetaminophen (Tylenol) 650 mg PO Q6H PRN PRN Reason: Fever Last Admin: 08/16/17 22:44 Dose: 650 mg Alprazolam (Xanax) 0.5 mg PO NOW ONE Stop: 08/19/17 20:07 Last Admin: 08/19/17 20:12 Dose: 0.5 mg Carvedilol (Coreg) 12.5 mg PO BID [facility] Last Admin: 08/17/17 09:38 Dose: 12.5 mg Carvedilol (Coreg) 12.5 mg PO BID [facility] Carvedilol (Coreg) 6.25 mg PO BID [facility] Last Admin: 08/19/17 08:30 Dose: 6.25 mg Ceftriaxone Sodium (Rocephin) 2 gm IVPUSH Q24H [facility] Furosemide (Lasix) 80 mg PO ONETIME ONE Stop: 08/18/17 12:20 Last Admin: 08/18/17 12:58 Dose: 80 mg Hydrocortisone Sodium Succinate (Solu-Cortef) 100 mg IVPUSH Q8H [facility] Last Admin: 08/18/17 12:01 Dose: 100 mg Hydrocortisone Sodium Succinate (Solu-Cortef) 100 mg IVPUSH Q12H [facility] Last Admin: 08/19/17 11:44 Dose: 100 mg Ceftriaxone Sodium 2 gm/ (Sodium Chloride) 100 mls @ 200 mls/hr IV ONETIME ONE Stop: 08/16/17 23:58 Last Admin: 08/16/17 23:38 Dose: Not Given Ceftriaxone Sodium 2 gm/ (Sodium Chloride) 100 mls @ 100 mls/hr IV ONETIME ONE Stop: 08/17/17 00:32 Last Admin: 08/16/17 23:47 Dose: 100 mls/hr Sodium Chloride (Normal Saline) 500 mls @ 1,000 mls/hr IV ONETIME ONE Stop: 08/17/17 00:03 Last Admin: 08/16/17 23:46 Dose: 1,000 mls/hr Sodium Chloride (Normal Saline) 1,000 mls @ 50 mls/hr IV ASDIRECTED [facility] Last Admin: 08/17/17 14:15 Dose: 50 mls/hr Promethazine HCl 25 mg/ Sodium (Chloride) 51 mls @ 100 mls/hr IV ONETIME ONE Stop: 08/17/17 12:30 Last Admin: 08/17/17 11:40 Dose: 100 mls/hr Sodium Chloride (Normal Saline) 1,000 mls @ 999 mls/hr IV ONETIME ONE Stop: 08/17/17 17:45 Last Admin: 08/17/17 17:00 Dose: 999 mls/hr Sodium Chloride (Normal Saline) 1,000 mls @ 200 mls/hr IV ASDIRECTED [facility] Stop: 08/18/17 02:00 Last Admin: 08/17/17 17:55 Dose: 200 mls/hr Sodium Chloride (Normal Saline) 1,000 mls @ 100 mls/hr IV ASDIRECTED [facility] Last Admin: 08/18/17 02:06 Dose: 100 mls/hr Levothyroxine Sodium (Levothyroxine) 125 mcg PO DAILY [facility] Last Admin: 08/18/17 08:55 Dose: 125 mcg Morphine Sulfate (Morphine) 4 mg IVPUSH Q2H PRN PRN Reason: Pain Last Admin: 08/16/17 23:53 Dose: 4 mg Ondansetron HCl (Zofran) 4 mg IVPUSH ONETIME ONE Stop: 08/16/17 23:35 Last Admin: 08/16/17 23:47 Dose: 4 mg Prednisone (Prednisone) 15 mg PO DAILY [facility] Last Admin: 08/18/17 08:58 Dose: 15 mg - Exam Quality Assessment: No: Supplemental Oxygen General: Alert, Oriented, Cooperative, No Acute Distress HEENT: Pupils Equal, Pupils Reactive, EOMI, Mucous Membr. Moist/[place] Neck: Supple. No: Lymphadenopathy Lungs: Clear to Auscultation, Normal Respiratory Effort Cardiovascular: Regular Rate, Regular Rhythm, No Murmurs GI/Abdominal Exam: Normal Bowel Sounds, Soft, Non-Tender, No Distention (Female) Exam: Deferred Back Exam: Normal Inspection, Full Range of Motion Extremities: Normal Inspection, Normal Range of Motion, Non-Tender, No Pedal Edema Peripheral Pulses: 2+: Radial (L), Radial (R), Posterior Tibial (L), Posterior Tibial (R), Dorsalis Pedis (L), Dorsalis Pedis (R) Skin: Warm, Dry, Intact Neurological: No New Focal Deficit, Normal Gait, Strength Equal Bilateral, Cranial Nerves Intact (grossly) Psy/Mental Status: Alert, Normal Affect, Normal Mood - Problem List Review Problem List Initiated/Reviewed/Updated: Yes - My Orders Last 24 Hours: My Active Orders 08/19/17 11:49 ALPRAZolam [Xanax] 0.5 mg PO BID PRN 08/19/17 21:00 Carvedilol [Coreg] 12.5 mg PO BID 08/21/17 05:11 BASIC METABOLIC PANEL,BMP [CHEM] AM C-REACTIVE PROTEIN [CHEM] AM CBC WITH AUTO DIFF [HEME] AM 08/22/17 05:11 BASIC METABOLIC PANEL,BMP [CHEM] AM C-REACTIVE PROTEIN [CHEM] AM CBC WITH AUTO DIFF [HEME] AM 08/22/17 09:00 predniSONE 15 mg PO DAILY - Plan Plan:: I/P: Acute: Pyelonephritis with sepsis - Risk factors: previous episodes of pyelonephritis, urinary incontinence - UA in ED showed slightly cloudy appearance, 2+ protein, 2+ occult blood, positive nitrite, 2+ LE, 10-20 RBC, 40-50 WBC, 10-20 epithelial cells, and many bacteria - She does meet criteria for Sepsis at this time --> she is receiving IV antibiotics, IV fluids, and BC x 2 and lactic acid x 2 ordered -Rocephin 2 gm IV initiated in ED and will continue daily during admit -She received NS 500 ml bolus in ED --> 50 ml/hr; patient became hypotensive therefore ordered 1L bolus, 200 ml x 8 hours, then 100 ml/hr (prelimary Echo report of EF 65%) --> goal MAP > 65 --> she has tolerated fluids well and BP has improved and orders have been completed -BC preliminary report is gram negative rods --> ordered repeat BC today -Lactic acid 2.4 in ED, 0.6 on 08/17/17 at 06:30, and 0.8 on 08/17/17 in evening - Urine culture: E coli - BC: E coli --> susceptible to Rocephin, will continue Rocephin and plan for Keflex 500 mg po q 12 hr at D/C - Repeat BC show no growth after 2 daus - CRP 5.8 today, yesterday 11.1 --> trending down, CRP may be elevated at baseline secondary to polymyositis - Afebrile Heart Failure - BNP 2441 in ED --> BNP 4300 today - Home meds include carvedilol 12.5 mg BID, lasix 80 mg BID, and spironolactone 50 mg daily - carvedilol decreased to 6.25 mg BID with hypotension --> will resume home dose today - Lasix held yesterday w/fluid resuscitation efforts --> will order Lasix 80 mg po x 1 today with resumption of home dose tomorrow (80 mg po BID) - Do not see MIREYA/ARB as part of regimen --> patient believes this medication was discontinued by 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 park 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 secondary 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 - 2D Echo report read as: EF 65%, impaired relaxation (grade I) pattern of LV diastolic filling, moderate proximal septal hypertrophy - CXR read as nothing acute - 2 gm Na diet - Patient reports home O2 use when she is in [place] but does not require O2 while in [place]; O2 prn ordered - Continue home meds as above Leukocytosis - WBC 13.55 today, yesterday 13.2 - Related to current medical state and receiving steroids - Monitor Weakness, improved - Exacerbated by current illness - Usually independent and is able to ambulate without assistance --> she is ambulating without assistance around unit - PT/OT Hx of patient on chronic steroid use - Dx of polymyositis in 2006 - Home meds: prednisone 15 mg daily and CellCept - Stress dose steroids of hydrocortisone 100 mg q 8 hr ordered initially and then adjusted to q 12 hr yesterday; also held prednisone 15 mg po daily --> will discontinue hydrocortisone today and resume patient's home dose of prednisone Hypothyroidism - TSH 0.178 - Could be result of volume status - Will increase levothyroxine from 125 mcg po daily to 137 mcg po daily Difficulty sleeping, improved - Patient reports that she takes Xanax occasionally for insomnia that is related to muscle aches with polymyositis - She reports she does not tolerate Ambien - Will order Xanax 0.5 mg BID prn insomnia/anxiety --> she reports she slept better today Resolved: Nausea/Vomiting - Likely 2/2 current illness - Has orders for Zofran prn and Phenergan prn - With these symptoms persisting, will order EKG and Troponin x 3 --> these were normal Renal insufficiency - Cr 1.1, eGFR 50 in ED, today Cr 0.9 and eGFR >60 - BUN 24 initially and BUN 33 today --> likely related to improved oral intake - Baseline unknown - Monitor Chronic: Hx prior episodes of pyelonephritis Heart failure HTN AR Cardiac stents COPD ABY Fibromyalgia OA Hypothyroidism TIA Hiatal hernia Pancreatitis Colon polyp with polypectomy Cholecystectomy Plan: Admitted from ED to Med/Surg and transferred to ICU --> transferred to [facility] with Tele yesterday Other orders as indicated above CM/SW for discharge planning --> potential plan for discharge on Thursday, Routine AM labs Continue home meds 2 gm Na diet Continue PT/OT DVT Prophylaxis: ANJALI [place] GI Prophylaxis: Protonix Ambulate as tolerated Code Status: Full Code PCP: Dr. Jamie Rosario in [place], [place] LOS > 96 hours due to slow response to treatment
[2017-08-20] MEDS: cefTRIAXone 2 GM in Sodium Chloride 0.9% 100 ML IV SCH (17:47)
[2017-08-20] MEDS: ALPRAZolam 0.5 MG Tab PO PRN (20:03)
[2017-08-20] MEDS: Sodium Chloride 0.9% 10 ML Syringe FLUSH PRN (20:07)
[2017-08-20] MEDS: Acetaminophen 325 MG Tab PO PRN (20:38)
[2017-08-21] MEDS: Spironolactone 25 MG Tab PO SCH (08:10)
[2017-08-21] MEDS: Folic Acid 1 MG Tab PO SCH (08:10)
[2017-08-21] MEDS: Pantoprazole 40 MG Tab.CR PO SCH (08:10)
[2017-08-21] MEDS: Clopidogrel 75 MG Tab PO SCH (08:11)
[2017-08-21] MEDS: Venlafaxine 75 MG Cap.ER PO SCH (08:11)
[2017-08-21] MEDS: Potassium Chloride 20 MEQ Tab.ER PO SCH (08:11)
[2017-08-21] MEDS: Furosemide 40 MG Tab PO SCH (08:12)
[2017-08-21] MEDS: Mycophenolate Mofetil 250 MG Cap PO SCH (08:15)
--- NOTE | 2017-08-21 08:25 | PCM.DCSUM1 ---
Discharge Summary - Hospital Course HPI Initial Comments: This is a 66 y/o female with PMHx significant for previous pyelonephritis, heart failure, HTN, VT, cardiac stents, COPD, ABY, fibromyalgia, OA, hypothyroidism, TIA, hiatal hernia, pancreatitis, colon polyp with polypectomy, and cholecystectomy who comes in for flank pain and fever. Patient reports fever , abdominal pain, vomiting, dysuria and flank pain. She denies HEENT issues, shortness of breath, cough, chest pain, musculoskeletal, or skin issues. Her work-up in the ED showed CBC remarkable for WBC 17.62, 78.4% neutrophils. CMP remarkable for Na 133, anion gap 16.3, BUN 24, Cr 1.1, eGFR 50, AST 59, ALT 113, albumin 3.3. UA showed slightly cloudy appearance, 2+ protein, 2+ occult blood, positive nitrite, 2+ LE, 10-20 RBC, 40-50 WBC, 10-20 epithelial cells, and many bacteria. Lipase was 126. Lactic acid was 2.4. ED also ordered BC x 2 and preliminary report is gram negative rods. Ceftriaxone 2gm IV initiated in ED. Patient reports that she began feeling ill approximately 4 days ago. She has been having fever, chills, and b/l flank pain. She has also been feeling very nauseous and has been vomiting several times per day. She does not endorse significant dysuria, hematuria, or frequency. She has had previous kidney infections and states that she is feeling like she did during the prior kidney infections. She states she was hospitalized in September 2016 for 8 days for a kidney infection. Chronically, patient endorses history of heart failure and she is chronically on steroids. She is visiting from out of state and is supposed to travel back to [place] in a few days. She is subsequently admitted to Med/Surg. She is a former smoker and quit in 2008. She is a full code. PCP is Dr. Jamie Rosario in [place], [place]. Diagnosis: Stroke: No - Discharge Data Discharge Date: 08/21/17 Discharge Disposition: Home, Self-Care 01 Condition: Good - Patient Summary/Data Operative Procedure(s) Performed: None Complications: None Consults: Consultations 08/17/17 09:05 Consult to Case Management [CONS] Routine Consult to Histology Aide [CONS] Routine Consult to Spiritual Care [CONS] Routine OT Evaluation and Treatment [CONS] Routine PT Evaluation and Treatment [CONS] Routine Labs Pending at D/C: None Recommended Follow-up Testing/Procedures: PCP when return to [place] PCP to evaluate TSH in 4-6 weeks PCP to evaluate BMP Planned Operative Procedure(s) after DC: None Hospital Course: I/P: Acute: Pyelonephritis with sepsis - Risk factors: previous episodes of pyelonephritis, urinary incontinence - UA in ED showed slightly cloudy appearance, 2+ protein, 2+ occult blood, positive nitrite, 2+ LE, 10-20 RBC, 40-50 WBC, 10-20 epithelial cells, and many bacteria - She does meet criteria for Sepsis at this time --> she is receiving IV antibiotics, IV fluids, and BC x 2 and lactic acid x 2 ordered -Rocephin 2 gm IV initiated in ED and will continue daily during admit -She received NS 500 ml bolus in ED --> 50 ml/hr; patient became hypotensive therefore ordered 1L bolus, 200 ml x 8 hours, then 100 ml/hr (preliminary Echo report of EF 65%) --> goal MAP > 65 --> she has tolerated fluids well and BP has improved and orders have been completed -BC preliminary report is gram negative rods --> final report E coli -Lactic acid 2.4 in ED, 0.6 on 08/17/17 at 06:30, and 0.8 on 08/17/17 in evening - Urine culture: E coli - BC: E coli --> susceptible to Rocephin, will continue Rocephin and plan for Keflex 500 mg po q 12 hr x 7 days at D/C - Repeat BC show no growth after 2 days - CRP 4.2 today, yesterday 5.8 --> trending down, CRP may be elevated at baseline secondary to polymyositis - Afebrile Heart Failure - BNP 2441 in ED --> BNP 4300 on 08/19/17 - Home meds include carvedilol 12.5 mg BID, lasix 80 mg BID, and spironolactone 50 mg daily - carvedilol decreased to 6.25 mg BID with hypotension --> will resume home dose - Lasix held yesterday w/fluid resuscitation efforts --> will order Lasix 80 mg po x 1 today with resumption of home dose (80 mg po BID) - Do not see MIREYA/ARB as part of regimen --> patient believes this medication was discontinued by 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 secondary 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 - 2D Echo report read as: EF 65%, impaired relaxation (grade I) pattern of LV diastolic filling, moderate proximal septal hypertrophy - CXR read as nothing acute - 2 gm Na diet - Patient reports home O2 use when she is in [place] but does not require O2 while in [place]; O2 prn ordered - Continue home meds as above Leukocytosis - WBC 12.55 today, yesterday 13.55 - Related to current medical state and receiving steroids - Monitor Hx of patient on chronic steroid use - Dx of polymyositis in 2005 - Home meds: prednisone 15 mg daily and CellCept - Stress dose steroids of hydrocortisone 100 mg q 8 hr ordered initially and then adjusted to q 12 hr; also held prednisone 15 mg po daily --> discontinued hydrocortisone and resumed patient's home dose of prednisone Hypothyroidism - TSH 0.178 - Could be result of volume status - Will increase levothyroxine from 125 mcg po daily to 137 mcg po daily Difficulty sleeping, improved - Patient reports that she takes Xanax occasionally for insomnia that is related to muscle aches with polymyositis - She reports she does not tolerate Ambien - Will order Xanax 0.5 mg BID prn insomnia/anxiety --> she reports she is sleeping better Renal insufficiency - Cr 1.1, eGFR 50 in ED - Today Cr 1.2 and eGFR 45 - Had improved to eGFR >60 and Cr 0.9 - BUN also rising --> likely related to improved oral intake - Baseline unknown - Recommend PCP evaluate labs in [place] - Monitor Resolved: Nausea/Vomiting - Likely 2/2 current illness - Has orders for Zofran prn and Phenergan prn - With these symptoms persisting, will order EKG and Troponin x 3 --> these were normal Weakness, improved - Exacerbated by current illness - Usually independent and is able to ambulate without assistance --> she is ambulating without assistance around unit - PT/OT Chronic: Hx prior episodes of pyelonephritis Heart failure HTN VT Cardiac stents COPD ABY Fibromyalgia OA Hypothyroidism TIA Hiatal hernia Pancreatitis Colon polyp with polypectomy Cholecystectomy Plan: Admitted from ED to Med/Surg and transferred to ICU --> transferred to [facility] with Tele Other orders as indicated above CM/SW for discharge planning --> discharge today, 08/21/17 Routine AM labs Continue home meds 2 gm Na diet Continue PT/OT DVT Prophylaxis: ANJALI [place] GI Prophylaxis: Protonix Ambulate as tolerated Code Status: Full Code PCP: Dr. Jamie Rosario in [place], [place] LOS > 96 hours due to slow response to treatment Hospital Course: Monique was admitted for pyelonephritis with sepsis. She has a history of previous hospitalization for pyelonephritis, polymyositis and heart failure. She has improved during this admission. Her initial work-up was done in ED with findings remarkable for WBC 17.62, 78.4% neutrophils; CMP remarkable for Na 133 , anion gap 16.3, BUN 24, Cr 1.1, eGFR 50, AST 59, ALT 113, albumin 3.3; UA showed slightly cloudy appearance, 2+ protein, 2+ occult blood, positive nitrite , 2+ LE, 10-20 RBC, 40-50 WBC, 10-20 epithelial cells, and many bacteria. Sepsis work-up initiated in ED. Lactic acid was 2.4. ED also ordered BC x 2 and preliminary report was gram negative rods with final report E coli. Urine culture also read as E coli. Ceftriaxone 2gm IV initiated in ED and was continued during admission. She will be given Rx for Keflex 500 mg q 12 hr x 7 days at discharge. Repeat lactic acid was 0.6 on 08/17/17 at 06:30, and 0.8 on in evening. With patient's hx of heart failure, IVF was initially cautious. She received NS 500 ml bolus in ED and then rate was 50 ml/hr. Patient was having persistent N/V therefore troponin x 3 and EKG were evaluated and came back as normal. Patient became hypotensive therefore she was transferred to the ICU and orders were placed for NS 1L bolus, then 200 ml x 8 hours, then 100 ml/hr until the following day. 2D Echo ordered with patient's hx of heart failure and preliminary echo report read as EF 65. Final 2D Echo report read as EF 65%, impaired relaxation (grade I) pattern of LV diastolic filling, moderate proximal septal hypertrophy. While she was receiving fluid resuscitation, goal MAP > 65. Home dose of carvedilol was 12.5 mg BID; this was adjusted to 6.25 mg BID during hypotensive episodes with home dose resumed once she was stable. She tolerated fluids well and BP improved. Repeat BC have shown no growth. Labs during admission were significant for persistent leukocytosis, however, patient is on chronic steroids with her history of polymyositis. Home dose is prednisone 15 mg po daily. She received stress dose steroids of hydrocortisone 100 mg q 8 hr initially and then adjusted to q 12 hr. Her home dose of prednisone was held while she received stress dose steroids. Stress dose steroids discontinued after 2 days and home dose prednisone resumed. Labs also showed TSH low at 0.178. Increased levothyroxine from 125 mcg to 137 mcg daily. Recommend TSH be evaluated in 4-6 weeks by patient's PCP in [place]. Additionally, patient's labs initially showed mild renal insufficiency that improved throughout her stay. However, on day of discharge, labs indicated decrease in eGFR from >60 to 45 and mild increase in Cr from 0.9 to 1.2. Baseline renal status unknown. She was encouraged to drink adequate fluids while maintaining CHF status. Recommend PCP evaluate BMP when she returns to [place]. Patient does have episodes of insomnia related to her polymyositis and reported she took Xanax at home. Order placed for Xanax 0.5 mg BID and patient's sleep did improve. New/updated medications at discharge: Keflex 500 mg po q 12 hr x 7 days, probiotic, xanax 0.5 mg po qHS x 10 days, levothyroxine 137 mcg po daily. We did discuss her seeing a provider in [place] prior to her returning to [place], and she would like to pursue that as she is in [place] for 2-3 months out of the year. Attempt was made to schedule an appointment in [place] but the clinic is closed today. Phone number for Arely Perez NP was provided. Patient is stable and ready for discharge home with her adult grandchildren today. Patient is agreeable to this plan. - Patient Instructions Diet: Heart Healthy Diet, Usual Diet as Tolerated Activity: As Tolerated Driving: May Drive Today Showering/Bathing: May Shower Notify Provider of: Fever, Increased Pain, Nausea and/or Vomiting - Discharge Plan Prescriptions/Med Rec: Cephalexin [Keflex] 500 mg PO BID 7 Days #14 cap Levothyroxine 137 mcg PO ACBREAKFAST 10 Days #10 tab Saccharomyces Boulardii [Florastor] 250 mg PO BID 17 Days #34 cap Home Medications: Home Meds Carvedilol [Coreg] 12.5 mg PO BID 08/16/17 [History] Clopidogrel [Plavix] 75 mg PO DAILY 08/16/17 [History] Cyclobenzaprine [Flexeril] 10 mg PO TID PRN 08/16/17 [History] Evolocumab [Repatha Sureclick] 140 mg Q15D 08/16/17 [History] Folic Acid 1 tab PO DAILY 08/16/17 [History] Furosemide [Lasix] 80 mg PO BID 08/16/17 [History] Levothyroxine Sodium [Synthroid] 125 mcg PO DAILY 08/16/17 [History] Lipase/Protease/Amylase [Lluvia Dr 36,000 Units Capsule] 1 cap PO BID 08/16/17 [ History] Mometasone/Formoterol [Dulera 200-5 MCG] 2 puff INH BID 08/16/17 [History] Mycophenolate Mofetil [Cellcept] 1,000 mg PO BID 08/16/17 [History] Nitroglycerin [Nitrostat] 1 tab SL ASDIRECTED PRN 08/16/17 [History] Pantoprazole Sodium [Protonix] 40 mg PO DAILY 08/16/17 [History] Potassium Chloride [Klor-Con] 20 meq PO BID 08/16/17 [History] Spironolactone [Aldactone] 50 mg PO DAILY 08/16/17 [History] Temazepam 15 mg PO BEDTIME PRN 08/16/17 [History] Venlafaxine HCl [Venlafaxine ER] 75 mg PO DAILY 08/16/17 [History] oxyCODONE HCl [Oxycodone HCl] 5 ml PO Q6HR PRN 08/16/17 [History] predniSONE [Prednisone] 15 mg PO DAILY 08/16/17 [History] Cephalexin [Keflex] 500 mg PO BID 7 Days #14 cap 08/21/17 [Rx] Levothyroxine 137 mcg PO ACBREAKFAST 10 Days #10 tab 08/21/17 [Rx] Saccharomyces Boulardii [Florastor] 250 mg PO BID 17 Days #34 cap 08/21/17 [Rx] Patient Handouts: Heart Failure, [id number] Forms: ED Department Discharge Referrals: PCP,None [Primary Care Provider] - - Discharge Summary/Plan Comment DC Time >30 min.: Yes (45) - General Info Admission Dx/Problem (Free Text: Admission Diagnosis/Problem Admission Diagnosis/Problem Pyelonephritis Subjective Update: In to see Monique. She is resting comfortably in bed. She continues to report that she is feeling better. She does endorse an occasional 'different feeling' when she urinates but denies any dysuria or hematuria. Denies chest pain, dyspnea at rest, or GI issues. She has been ambulating without issues; she does experience some ANTHONY which is chronic. No concerns from nursing. She is looking forward to being discharged today. Functional Status: Reports: Pain Controlled, Tolerating Diet, Ambulating, Urinating - Review of Systems General: Reports: No Symptoms. Denies: Fever, Weakness, Fatigue HEENT: Reports: No Symptoms. Denies: Sinus Congestion, Sore Throat Pulmonary: Reports: No Symptoms. Denies: Shortness of Breath, Cough Cardiovascular: Reports: No Symptoms. Denies: Chest Pain, Palpitations, Edema Gastrointestinal: Reports: No Symptoms. Denies: Abdominal Pain, Constipation, Diarrhea, Nausea, Vomiting Genitourinary: Reports: Other (Occasionally mild 'different feeling' when she urinates). Denies: Dysuria, Frequency, Burning, Hematuria Musculoskeletal: Reports: No Symptoms, Joint Pain (at baseline) Skin: Reports: No Symptoms Neurological: Reports: No Symptoms. Denies: Confusion, Dizziness, Headache Psychiatric: Reports: No Symptoms. Denies: Confusion, Depression, Anxiety - Patient Data Vitals - Most Recent: Last Vital Signs Temp 98.1 F 08/21/17 05:59 Pulse 67 08/20/17 15:00 Resp 16 08/21/17 05:59 BP 139/74 08/21/17 05:59 Pulse Ox 98 08/21/17 06:00 Weight - Most Recent: 184 lb 9.6 oz I&O - Last 24 hours: Intake & Output 08/20/17 08/21/17 08/21/17 22:59 06:59 14:59 Intake Total 1480 600 Output Total 1550 1700 Balance -70 -1100 Lab Results - Last 24 hrs: Laboratory Results - last 24 hr 08/21/17 08/21/17 Range/Units 05:55 05:55 WBC 12.55 H (3.98-10.04) K/mm3 RBC 4.35 (3.98-5.22) M/mm3 Hgb 12.1 (11.2-15.7) gm/L Hct 37.8 (34.1-44.9) % MCV 86.9 (79.4-94.8) fl MCH 27.8 (25.6-32.2) pg MCHC 32.0 L (32.2-35.5) g/dl RDW Std Deviation 43.0 (36.4-46.3) fL Plt Count 339 (182-369) K/mm3 MPV 10.2 (9.4-12.3) fl Neut % (Auto) 56.7 (34.0-71.1) % Lymph % (Auto) 27.2 (19.3-51.7) % Villalba % (Auto) 9.3 (4.7-12.5) % Eos % (Auto) 3.9 (0.7-5.8) Baso % (Auto) 0.4 (0.1-1.2) % Neut # (Auto) 7.11 H (1.56-6.13) K/mm3 Lymph # (Auto) 3.41 (1.18-3.74) K/mm3 Villalba # (Auto) 1.17 H (0.24-0.36) K/mm3 Eos # (Auto) 0.49 H (0.04-0.36) K/mm3 Baso # (Auto) 0.05 (0.01-0.08) K/mm3 Manual Slide Review Normal smear Sodium 139 (136-145) mEq/L Potassium 4.0 (3.5-5.1) mEq/L Chloride 102 (98-107) mEq/L Carbon Dioxide 27 (21-32) mEq/L Anion Gap 14.0 (5-15) BUN 38 H (7-18) mg/dL Creatinine 1.2 H (0.55-1.02) mg/dL Est Cr Clr Drug Dosing 37.46 mL/min Estimated GFR (MDRD) 45 (>60) mL/min BUN/Creatinine Ratio 31.7 H (14-18) Glucose 90 (80-115) mg/dL Calcium 8.5 (8.5-10.1) mg/dL C-Reactive Protein 4.2 H* (<1.0) mg/dL DAVID Results - Last 24 hrs: Microbiology 08/16/17 23:00 Aerobic Blood Culture - Preliminary Blood - Venous NO GROWTH AFTER 4 DAYS Anaerobic Blood Culture - Final Escherichia Coli 08/16/17 23:10 Aerobic Blood Culture - Final Blood - Venous - Lab Draw Escherichia Coli Anaerobic Blood Culture - Final Escherichia Coli 08/17/17 10:47 Urine Culture - Final Urine, Clean Catch Escherichia Coli 08/18/17 10:26 Aerobic Blood Culture - Preliminary Blood - Venous NO GROWTH AFTER 2 DAYS Anaerobic Blood Culture - Preliminary NO GROWTH AFTER 2 DAYS 08/18/17 10:32 Aerobic Blood Culture - Preliminary Blood - Venous - Lab Draw NO GROWTH AFTER 2 DAYS Anaerobic Blood Culture - Preliminary NO GROWTH AFTER 2 DAYS Med Orders - Current: Current Medications Acetaminophen (Tylenol) 650 mg PO Q4H PRN PRN Reason: Pain/Fever Last Admin: 08/20/17 20:38 Dose: 650 mg Hydrocodone Bitart/Acetaminophen ([place] 325-5 Mg) 1 tab PO Q6H PRN PRN Reason: Pain Albuterol/Ipratropium (Duoneb 3.0-0.5 Mg/3 Ml) 3 ml NEB Q4H PRN PRN Reason: Shortness Of Breath/wheezing Alprazolam (Xanax) 0.5 mg PO BID PRN PRN Reason: Insomnia Last Admin: 08/20/17 20:03 Dose: 0.5 mg Bisacodyl (Dulcolax) 5 mg PO DAILY PRN PRN Reason: Constipation Carvedilol (Coreg) 12.5 mg PO BID [facility] Last Admin: 08/20/17 20:03 Dose: 12.5 mg Clopidogrel Bisulfate (Plavix) 75 mg PO DAILY [facility] Last Admin: 08/21/17 08:11 Dose: 75 mg Cyclobenzaprine HCl (Flexeril) 10 mg PO TID PRN PRN Reason: Muscle Spasm Docusate Sodium (Colace) 100 mg PO BID PRN PRN Reason: Constipation Folic Acid (Folic Acid) 1 mg PO DAILY [facility] Last Admin: 08/21/17 08:10 Dose: 1 mg Furosemide (Lasix) 80 mg PO BID [facility] Last Admin: 08/21/17 08:12 Dose: 80 mg Ceftriaxone Sodium 2 gm/ (Sodium Chloride) 100 mls @ 100 mls/hr IV Q24H [facility] Last Admin: 08/20/17 17:47 Dose: 100 mls/hr Ibuprofen (Motrin) 600 mg PO Q6H PRN PRN Reason: Fever Last Admin: 08/17/17 03:43 Dose: 600 mg Levothyroxine Sodium (Levothroid) 137 mcg PO ACBREAKFAST [facility] Last Admin: 08/21/17 05:51 Dose: 137 mcg Magnesium Hydroxide (Milk Of Magnesia) 30 ml PO Q12H PRN PRN Reason: Constipation Mometasone Furoate/Formoterol Fumar (Dulera 200-5 Mcg) 2 puff IH BID [facility] Last Admin: 08/20/17 20:16 Dose: 2 puff Morphine Sulfate (Morphine) 2 mg IVPUSH Q4H PRN PRN Reason: Pain Last Admin: 08/17/17 06:28 Dose: 2 mg Mycophenolate Mofetil (Cellcept) 1,000 mg PO BID [facility] Last Admin: 08/20/17 20:04 Dose: 1,000 mg Nitroglycerin (Nitrostat) 0.4 mg SL ASDIRECTED PRN PRN Reason: Chest Pain Ondansetron HCl (Zofran) 4 mg IVPUSH Q8H PRN PRN Reason: Nausea/Vomiting Last Admin: 08/17/17 09:45 Dose: 4 mg Oxycodone HCl (Oxycodone) 5 mg PO Q6H PRN PRN Reason: Pain Pantoprazole Sodium (Protonix) 40 mg PO DAILY [facility] Last Admin: 08/21/17 08:10 Dose: 40 mg Lipase/Protease/Amylase [Creon Dr 36 ,000 Units Capsule] 1 0 each PO BID [facility] Last Admin: 08/20/17 20:21 Dose: Not Given Polyethylene Glycol (Miralax) 17 gm PO DAILY PRN PRN Reason: Constipation Potassium Chloride (Klor-Con M20) 20 meq PO BID [facility] Last Admin: 08/21/17 08:11 Dose: 20 meq Prednisone (Prednisone) 15 mg PO DAILY [facility] Promethazine HCl (Phenergan) 25 mg PO Q6H PRN PRN Reason: Nausea/Vomiting Senna/Docusate Sodium (Senna Plus) 1 tab PO BID PRN PRN Reason: Constipation Sodium Chloride (Saline Flush) 10 ml FLUSH ASDIRECTED PRN PRN Reason: Keep Vein Open Last Admin: 08/20/17 20:07 Dose: 10 ml Spironolactone (Aldactone) 50 mg PO DAILY [facility] Last Admin: 08/21/17 08:10 Dose: 50 mg Temazepam (Restoril) 15 mg PO BEDTIME PRN PRN Reason: insomia Last Admin: 08/19/17 20:04 Dose: 15 mg Venlafaxine HCl (Effexor Xr) 75 mg PO DAILY [facility] Last Admin: 08/21/17 08:11 Dose: 75 mg Discontinued Medications Acetaminophen (Tylenol) 650 mg PO Q6H PRN PRN Reason: Fever Last Admin: 08/16/17 22:44 Dose: 650 mg Alprazolam (Xanax) 0.5 mg PO NOW ONE Stop: 08/19/17 20:07 Last Admin: 08/19/17 20:12 Dose: 0.5 mg Carvedilol (Coreg) 12.5 mg PO BID [facility] Last Admin: 08/17/17 09:38 Dose: 12.5 mg Carvedilol (Coreg) 12.5 mg PO BID [facility] Carvedilol (Coreg) 6.25 mg PO BID [facility] Last Admin: 08/19/17 08:30 Dose: 6.25 mg Ceftriaxone Sodium (Rocephin) 2 gm IVPUSH Q24H [facility] Furosemide (Lasix) 80 mg PO ONETIME ONE Stop: 08/18/17 12:20 Last Admin: 08/18/17 12:58 Dose: 80 mg Hydrocortisone Sodium Succinate (Solu-Cortef) 100 mg IVPUSH Q8H [facility] Last Admin: 08/18/17 12:01 Dose: 100 mg Hydrocortisone Sodium Succinate (Solu-Cortef) 100 mg IVPUSH Q12H [facility] Last Admin: 08/19/17 11:44 Dose: 100 mg Ceftriaxone Sodium 2 gm/ (Sodium Chloride) 100 mls @ 200 mls/hr IV ONETIME ONE Stop: 08/16/17 23:58 Last Admin: 08/16/17 23:38 Dose: Not Given Ceftriaxone Sodium 2 gm/ (Sodium Chloride) 100 mls @ 100 mls/hr IV ONETIME ONE Stop: 08/17/17 00:32 Last Admin: 08/16/17 23:47 Dose: 100 mls/hr Sodium Chloride (Normal Saline) 500 mls @ 1,000 mls/hr IV ONETIME ONE Stop: 08/17/17 00:03 Last Admin: 08/16/17 23:46 Dose: 1,000 mls/hr Sodium Chloride (Normal Saline) 1,000 mls @ 50 mls/hr IV ASDIRECTED [facility] Last Admin: 08/17/17 14:15 Dose: 50 mls/hr Promethazine HCl 25 mg/ Sodium (Chloride) 51 mls @ 100 mls/hr IV ONETIME ONE Stop: 08/17/17 12:30 Last Admin: 08/17/17 11:40 Dose: 100 mls/hr Sodium Chloride (Normal Saline) 1,000 mls @ 999 mls/hr IV ONETIME ONE Stop: 08/17/17 17:45 Last Admin: 08/17/17 17:00 Dose: 999 mls/hr Sodium Chloride (Normal Saline) 1,000 mls @ 200 mls/hr IV ASDIRECTED [facility] Stop: 08/18/17 02:00 Last Admin: 08/17/17 17:55 Dose: 200 mls/hr Sodium Chloride (Normal Saline) 1,000 mls @ 100 mls/hr IV ASDIRECTED [facility] Last Admin: 08/18/17 02:06 Dose: 100 mls/hr Levothyroxine Sodium (Levothyroxine) 125 mcg PO DAILY [facility] Last Admin: 08/18/17 08:55 Dose: 125 mcg Morphine Sulfate (Morphine) 4 mg IVPUSH Q2H PRN PRN Reason: Pain Last Admin: 08/16/17 23:53 Dose: 4 mg Ondansetron HCl (Zofran) 4 mg IVPUSH ONETIME ONE Stop: 08/16/17 23:35 Last Admin: 08/16/17 23:47 Dose: 4 mg Prednisone (Prednisone) 15 mg PO DAILY [facility] Last Admin: 08/18/17 08:58 Dose: 15 mg - Exam Quality Assessment: Denies: Supplemental Oxygen General: Reports: Alert, Oriented, Cooperative, No Acute Distress HEENT: Reports: Pupils Equal, Pupils Reactive, EOMI, Mucous Membr. Moist/[place] Neck: Reports: Supple. Denies: Lymphadenopathy Lungs: Reports: Clear to Auscultation, Normal Respiratory Effort Cardiovascular: Reports: Regular Rate, Regular Rhythm, No Murmurs GI/Abdominal Exam: Normal Bowel Sounds, Soft, Non-Tender, No Distention (Female) Exam: Deferred Rectal (Female) Exam: Deferred Back Exam: Reports: Normal Inspection, Full Range of Motion Extremities: Normal Inspection, Normal Range of Motion, Non-Tender, No Pedal Edema, Normal Capillary Refill Skin: Reports: Warm, Dry, Intact Neurological: Reports: No New Focal Deficit, Normal Gait, Strength Equal Bilateral, Cranial Nerves Intact (grossly ) Psy/Mental Status: Reports: Alert, Normal Affect, Normal Mood
[2017-08-21] MEDS: Carvedilol 12.5 MG Tab PO SCH (09:34)
[2017-08-21] MEDS: LIPASE PO SCH (09:35)
[2017-08-21] MEDS: AMYLASE PO SCH (09:35)
[2017-08-21] MEDS: PROTEASE PO SCH (09:35)
[2017-08-22] MEDS ORDERED: predniSONE 10 MG Tab PO SCH (09:00)
== END 2017-08-21 12:30 | disposition home or self-care (01) | DRG 872 ==
LOC: JD.ED 21:56 → JD.MS 08-17 00:40 → JD.ICU 08-17 17:13
PROVIDERS: ADMIT Internal Medicine Cardiovascular Disease; ATTEND Internal Medicine Cardiovascular Disease
DX: A41.9 Sepsis, unspecified organism (principal); A41.51 Sepsis due to Escherichia coli [E. coli]; M35.3 Polymyalgia rheumatica; N12 Tubulo-interstitial nephritis, not specified as acute or chronic; Z79.899 Other long term (current) drug therapy; I13.0 Hypertensive heart and chronic kidney disease with heart failure and stage 1 through stage 4 chronic kidney disease, or unspecified chronic kidney disease; I11.0 Hypertensive heart disease with heart failure; M33.20 Polymyositis, organ involvement unspecified; Z95.5 Presence of coronary angioplasty implant and graft; E11.22 Type 2 diabetes mellitus with diabetic chronic kidney disease; B96.20 Unspecified Escherichia coli [E. coli] as the cause of diseases classified elsewhere; N18.9 Chronic kidney disease, unspecified; J44.9 Chronic obstructive pulmonary disease, unspecified; M79.7 Fibromyalgia; E03.9 Hypothyroidism, unspecified; I50.9 Heart failure, unspecified; G47.33 Obstructive sleep apnea (adult) (pediatric); Z79.4 Long term (current) use of insulin; Z79.52 Long term (current) use of systemic steroids; M19.90 Unspecified osteoarthritis, unspecified site; I25.2 Old myocardial infarction; Z86.73 Personal history of transient ischemic attack (TIA), and cerebral infarction without residual deficits; Z88.2 Allergy status to sulfonamides; Z87.891 Personal history of nicotine dependence; Z86.010 Personal history of colon polyps; Z86.19 Personal history of other infectious and parasitic diseases
CPT/HCPCS: 36415; 80053; 81001; 83605; 83690; 83735; 85025; 87040 ×2; 96365; 96375; 99285; A9270; J0696; J2270; J2405; J7030; J7040; J7050; 71046; 71046-26; 80048; 83880; 84443; 84484; 86140; 87077; 87086; 87088; 87186; 93005; 93306; 94640; 94664; 97161-GP; 97165-GO; J1720; J2550